=== PATIENT | female | born 1980 | race African-American/Black ===

== ENCOUNTER → 2017-02-12 07:28 | Emergency (ER) | payer OTHER ==
[~2017-02-12 07:28] MED LIST: LORazepam TAB(*) 1 MG PO ONE
[2017-02-12 07:34] VITALS: BP 142/113
--- NOTE | 2017-02-12 10:46 | ED ---
Zachary Torres Nilda, scribed for Jan Lo MD on 02/12/17 at 0832 . Psychiatric Complaint - HPI Summary HPI Summary: This patient is a 36 year old F presenting to [facility] with a chief complaint of constant insomnia for the past month. Patient had a [facility] referral to a specialist in [place] after being diagnosed with anxiety. The specialist was assisting with sleep management with limited resolution. Patient can no longer see this specialist. Symptoms aggravated and alleviated by nothing. Patient reports her mind won't turn off. She currently has no medication to manage her insomnia. - History Of Current Complaint Chief Complaint: EDMentalHealth Time Seen by Provider: 02/12/17 07:55 Hx Obtained From: Patient Onset/Duration: Gradual Onset, Lasting Weeks, Still Present Timing: Constant Severity Currently: Moderate Aggravating Factor(s): Nothing Alleviating Factor(s): Nothing Related History: Positive For: Prior Psychiatric Issues - anxiety PMH/Surg Hx/FS Hx/Imm Hx Sensory History: Denies: Hx Legally Blind Psychiatric History: Reports: Hx Anxiety Infectious Disease History: No Infectious Disease History: Denies: Traveled Outside the [place] in Last 30 Days - Family History Known Family History: Negative: Hypertension, Diabetes Review of Systems Negative: Shortness Of Breath Positive: Anxious, Other - "mind won't turn off," insomnia All Other Systems Reviewed And Are Negative: Yes Physical Exam Triage Information Reviewed: Yes Vital Signs On Initial Exam: Initial Vitals Temp Pulse Resp BP Pulse Ox 98.6 F 104 19 142/113 97 02/12/17 07:28 02/12/17 07:28 02/12/17 07:28 02/12/17 07:28 02/12/17 07:28 Vital Signs Reviewed: Yes Appearance: Positive: Well-Appearing, No Pain Distress Skin: Positive: Warm, Skin Color Reflects Adequate Perfusion, Dry Head/Face: Positive: Normal Head/Face Inspection Eyes: Positive: Normal ENT: Positive: Normal ENT inspection Neck: Positive: Supple, Nontender Respiratory/Lung Sounds: Positive: Clear to Auscultation, Breath Sounds Present Cardiovascular: Positive: RRR Abdomen Description: Positive: Nontender, Soft Bowel Sounds: Positive: Present Musculoskeletal: Positive: Normal Neurological: Positive: Normal Psychiatric: Positive: Normal, Affect/Mood Appropriate Diagnostics - Vital Signs Vital Signs Temp Pulse Resp BP Pulse Ox 02/12/17 07:28 98.6 F 104 19 142/113 97 - Laboratory Lab Statement: Any lab studies that have been ordered have been reviewed, and results considered in the medical decision making process. Course/Dx - Course Course Of Treatment: Ms. Wallis presented with uncontrolled anxiety and insomnia. She has needed increasing doses of temazepam and her local psychiatrist has dropped her. She saw the [facility] here who arranged for follow up and I will give her a short course of seroquel to tide her over. - Differential Dx/Clinical Impression Provider Diagnosis: Anxiety Discharge - Discharge Plan Condition: Stable Disposition: OTHER Discharge Disposition Comment: E Prescriptions: QUEtiapine TAB* [SEROquel TAB*] 100 mg PO BEDTIME #20 tab Patient Education Materials: Anxiety (ED) Referrals: [facility] [Other] - As Soon As Possible (Please contact to schedule an appointment to discuss other medications options to help promote sleep.) [facility] - Ankur PANTOJA [Primary Care Provider] - As Soon As Possible ( Continue with therapy through [facility]) Additional Instructions: RETURN TO THE EMERGENCY DEPARTMENT FOR CHANGING OR WORSENING SYMPTOMS. The documentation as recorded by the Zachary cary Nilda accurately reflects the service I personally performed and the decisions made by me, Jan Lo MD.
== END ==
LOC: ED 07:28
DX: F41.9 Anxiety disorder, unspecified (principal)
CPT/HCPCS: 99283; A9270-GY

== ENCOUNTER 2017-05-07 15:16 | Emergency (ER) | payer OTHER ==
[2017-05-07] MEDS ORDERED: HYDROmorphone INJ* 1 MG/ML CARPUJECT SYRINGE IV ONE (17:00)
[2017-05-07] MEDS ORDERED: Ondansetron INJ* 2 MG/ML VIAL IV ONE (17:00)
[2017-05-07] MEDS ORDERED: NS 0.9% 1000 ML* 1,000 ML IV ONE (17:00)
[2017-05-07 17:15] LABS: Urine Appearance Cloudy; Urine Blood Negative (Negative); Urine Color Amber; Urine Ketones 1+ (Negative); Urine Protein Negative (Negative); Urine Specific Gravity 1.021 (1.010-1.030); Urine Urobilinogen Negative (Negative)
[2017-05-07 17:31] LABS: ABS Basophils 0 10^3/ul (0-0.2); ABS Eosinophils 0 10^3/ul (0-0.6); ABS Lymphocytes 1.3 10^3/ul (1.0-4.8); ABS Monocytes 0.8 10^3/ul (0-0.8); ABS Neutrophils 9.3 10^3/ul (1.5-7.7); ABS Nucleated RBC 0 10^3/ul; Eosinophil % 0.2 % (0-6); Hematocrit 38 % (35-47); Hemoglobin 13.2 g/dl (12.0-16.0); Mean Corpuscular HGB Conc 35 g/dl (31-36); Mean Corpuscular Hemoglobin 30 pg (27-31); Mean Corpuscular Volume 87 fL (80-97); Mean Platelet Volume 7 um3 (7.4-10.4); Nucleated Red Blood Cells % 0; Platelet Count 305 10^3/ul (150-450); Red Blood Count 4.36 10^6/ul (4.0-5.4); Red Cell Distribution Width 12 % (10.5-15); White Blood Count 11.4 10^3/ul (3.5-10.8)
[2017-05-07] MEDS ORDERED: diPHENhydraMINE PO* 50 MG PO ONE ×2 (18:13→19:41)
[2017-05-07 18:18] LABS: EGFR Non-African American 88.5 (>60)
--- NOTE | 2017-05-07 18:24 | RAD ---
Indication: RIGHT lower quadrant severe abdominal pain, cramping, and urge to have bowel movement. Comparison: No relevant prior exams available on the [facility] PACS for comparison. Technique: Transvaginal pelvic ultrasound. RIGHT lower quadrant transabdominal ultrasound. Report: 8.7 x 4.0 x 4.7 cm anteverted uterus with suggestion of arcuate variant morphology. 0.9 x 0.5 x 0.6 cm midline anterior subserosal fibroid and 1.4 x 1.0 x 1.2 cm LEFT fundal subserosal fibroid. 6 mm endometrium. Physiologic small volume of free pelvic fluid. 2.0 x 1.3 x 1.8 cm RIGHT ovary with documented vascular flow is unremarkable. 1.9 x 2.4 x 1.7 cm LEFT ovary with documented vascular flow is unremarkable. No visualized extra ovarian adnexal region lesions evident. Nondiagnostic exam for assessment of the appendix due to nonvisualization of the appendix. Negative for RIGHT lower quadrant free fluid. IMPRESSION: 1. Small subserosal uterine fibroids. Normal thickness endometrium. Unremarkable ovaries and adnexal regions. 2. Nondiagnostic exam of the appendix due to nonvisualization of the appendix. Correlate with clinical assessment and consider CT for further evaluation if deemed appropriate.
--- NOTE | 2017-05-07 18:24 | RAD ---
Indication: RIGHT lower quadrant severe abdominal pain, cramping, and urge to have bowel movement. Comparison: No relevant prior exams available on the [facility] PACS for comparison. Technique: Transvaginal pelvic ultrasound. RIGHT lower quadrant transabdominal ultrasound. Report: 8.7 x 4.0 x 4.7 cm anteverted uterus with suggestion of arcuate variant morphology. 0.9 x 0.5 x 0.6 cm midline anterior subserosal fibroid and 1.4 x 1.0 x 1.2 cm LEFT fundal subserosal fibroid. 6 mm endometrium. Physiologic small volume of free pelvic fluid. 2.0 x 1.3 x 1.8 cm RIGHT ovary with documented vascular flow is unremarkable. 1.9 x 2.4 x 1.7 cm LEFT ovary with documented vascular flow is unremarkable. No visualized extra ovarian adnexal region lesions evident. Nondiagnostic exam for assessment of the appendix due to nonvisualization of the appendix. Negative for RIGHT lower quadrant free fluid. IMPRESSION: 1. Small subserosal uterine fibroids. Normal thickness endometrium. Unremarkable ovaries and adnexal regions. 2. Nondiagnostic exam of the appendix due to nonvisualization of the appendix. Correlate with clinical assessment and consider CT for further evaluation if deemed appropriate.
[2017-05-07] MEDS ORDERED: HYDROcodone/ACETAMIN 5-325 MG* 1 TAB PO ONE (18:36)
[2017-05-07 19:44] VITALS: BP 122/68
--- NOTE | 2017-05-08 14:51 | ED ---
Ky Torres Tecjoon, scribed for Jan Lo MD on 05/07/17 at 1653 . Abdominal Pain/Female - HPI Summary HPI Summary: This patient is a 36 year old female presenting to [facility] with a chief complaint of lower abd and pelvic pain since yesterday. Patient states that she started fasting the last few days as a new years celebration, but stopped after the pain started. The pain is described as sharp, goes in waves. The pain is rated 10/10 in severity. Symptoms aggravated by nothing. Symptoms alleviated by nothing. Patient additionally reports constipation, nausea, tenderness in upper abd. Patient denies diarrhea, loss of appetite. Patient states she has been unable to urinate properly, only a small amount comes out. - History of Current Complaint Chief Complaint: EDAbdPain Stated Complaint: ABD PAIN Time Seen by Provider: 05/07/17 16:10 Hx Obtained From: Patient Onset/Duration: Gradual Onset, Lasting Days - 1, Still Present Timing: Constant Severity Currently: Severe Pain Intensity: 10 Pain Scale Used: 0-10 Numeric Location: Discrete At: RLQ, Suprapubic Character: Sharp, Other: - "goes in waves" Aggravating Factor(s): Nothing Alleviating Factor(s): Nothing Associated Signs and Symptoms: Positive: Other: - constipation, nausea, tenderness in upper abd Allergies/Adverse Reactions: Allergies Allergy/AdvReac Type Severity Reaction Status Date / Time No Known Allergies Allergy Verified 05/07/17 17:42 PMH/Surg Hx/FS Hx/Imm Hx Previously Healthy: Yes Sensory History: Denies: Hx Legally Blind Opthamlomology History: Denies: Hx Legally Blind Psychiatric History: Reports: Hx Anxiety Denies: Hx Eating Disorder, Hx of Violent Episodes Against Others Infectious Disease History: No Infectious Disease History: Denies: Traveled Outside the [place] in Last 30 Days - Family History Known Family History: Negative: Hypertension, Diabetes - Social History Occupation: Employed Full-time Alcohol Use: None Hx Substance Use: No Substance Use Type: Reports: None Hx Tobacco Use: No Smoking Status (MU): Never Smoked Tobacco Review of Systems Negative: Fever Positive: Abdominal Pain, Nausea, Other - constipation. Negative: Diarrhea Genitourinary: Other - pelvic pain All Other Systems Reviewed And Are Negative: Yes Physical Exam - Summary Physical Exam Summary: Appearance: The patient is well-nourished in no acute distress and in no acute pain. Skin: The skin is warm and dry and skin color reflects adequate perfusion. HEENT: The head is normocephalic and atraumatic. The pupils are equal and reactive. The conjunctivae are clear and without drainage. Nares are patent and without drainage. Mouth reveals moist mucous membranes and the throat is without erythema and exudate. The external ears are intact. The ear canals are patent and without drainage. The tympanic membranes are intact. Neck: the neck is supple with full range of motion and non-tender. There are no carotid bruits. There is no neck vein distension. Respiratory: Chest is non-tender. Lungs are clear to auscultation and breath sounds are symmetrical and equal. Cardiovascular: Heart is regular rate and rhythm. There is no murmur or rub auscultated. There is no peripheral edema and pulses are symmetrical and equal. Abdomen: Moderate tenderness at MacBurney's point. Mild diffuse tenderness Musculoskeletal: There is no back tenderness noted. Extremities are non-tender with full range of motion. There is good capillary refill. There is no peripheral edema or calf tenderness elicited. Neurological: Patient is alert and oriented to person, place and time. The patient has symmetrical motor strength in all four extremities. Cranial nerves are grossly intact. Deep tendon reflexes are symmetrical and equal in all four extremities. Psychiatric: The patient has an appropriate affect and does not exhibit any anxiety or depression. Triage Information Reviewed: Yes Vital Signs On Initial Exam: Initial Vitals Temp Pulse Resp BP Pulse Ox 97.6 F 98 19 113/79 98 05/07/17 15:17 05/07/17 15:17 05/07/17 15:17 05/07/17 15:17 05/07/17 15:17 Vital Signs Reviewed: Yes Diagnostics - Vital Signs Vital Signs Temp Pulse Resp BP Pulse Ox 05/07/17 15:17 97.6 F 98 19 113/79 98 - Laboratory Lab Results: Lab Results 05/07/17 05/07/17 05/07/17 Range/Units 16:53 17:10 17:10 WBC 11.4 H (3.5-10.8) 10^3/ul RBC 4.36 (4.0-5.4) 10^6/ul Hgb 13.2 (12.0-16.0) g/dl Hct 38 (35-47) % MCV 87 (80-97) fL MCH 30 (27-31) pg MCHC 35 (31-36) g/dl RDW 12 (10.5-15) % Plt Count 305 (150-450) 10^3/ul MPV 7 L (7.4-10.4) um3 Neut % (Auto) 81.5 (38-83) % Lymph % (Auto) 11.0 L (25-47) % [place] % (Auto) 7.1 (1-9) % Eos % (Auto) 0.2 (0-6) % Baso % (Auto) 0.2 (0-2) % Absolute Neuts (auto) 9.3 H (1.5-7.7) 10^3/ul Absolute Lymphs (auto) 1.3 (1.0-4.8) 10^3/ul Absolute Monos (auto) 0.8 (0-0.8) 10^3/ul Absolute Eos (auto) 0 (0-0.6) 10^3/ul Absolute Basos (auto) 0 (0-0.2) 10^3/ul Absolute Nucleated RBC 0 10^3/ul CBC Comment Cancelled Nucleated RBC % 0 Sodium Cancelled Potassium Cancelled Chloride Cancelled Carbon Dioxide Cancelled Anion Gap Cancelled BUN Cancelled Creatinine Cancelled Est GFR ( Amer) Cancelled Est GFR (Non-Af Amer) Cancelled BUN/Creatinine Ratio Cancelled Glucose Cancelled Lactic Acid (0.5-2.0) mmol/L Calcium Cancelled Total Bilirubin Cancelled AST Cancelled ALT Cancelled Alkaline Phosphatase Cancelled C-Reactive Protein Cancelled Total Protein Cancelled Albumin Cancelled Globulin Cancelled Albumin/Globulin Ratio Cancelled Lipase Cancelled Beta HCG, Quant Cancelled Urine Color K[place] Urine Appearance Cloudy Urine pH 8.0 (5-9) Ur Specific [place] 1.021 (1.010-1.030) Urine Protein Negative (Negative) Urine Ketones 1+ H (Negative) Urine Blood Negative (Negative) Urine Nitrate Negative (Negative) Urine Bilirubin Negative (Negative) Urine Urobilinogen Negative (Negative) Ur Leukocyte Esterase Negative (Negative) Urine Glucose Negative (Negative) 05/07/17 05/07/17 Range/Units 17:10 17:10 WBC (3.5-10.8) 10^3/ul RBC (4.0-5.4) 10^6/ul Hgb (12.0-16.0) g/dl Hct (35-47) % MCV (80-97) fL MCH (27-31) pg MCHC (31-36) g/dl RDW (10.5-15) % Plt Count (150-450) 10^3/ul MPV (7.4-10.4) um3 Neut % (Auto) (38-83) % Lymph % (Auto) (25-47) % [place] % (Auto) (1-9) % Eos % (Auto) (0-6) % Baso % (Auto) (0-2) % Absolute Neuts (auto) (1.5-7.7) 10^3/ul Absolute Lymphs (auto) (1.0-4.8) 10^3/ul Absolute Monos (auto) (0-0.8) 10^3/ul Absolute Eos (auto) (0-0.6) 10^3/ul Absolute Basos (auto) (0-0.2) 10^3/ul Absolute Nucleated RBC 10^3/ul CBC Comment Nucleated RBC % Sodium 130 L Potassium 3.5 Chloride 100 L Carbon Dioxide 22 Anion Gap 8 BUN 8 Creatinine 0.75 Est GFR ( Amer) 113.8 Est GFR (Non-Af Amer) 88.5 BUN/Creatinine Ratio 10.7 Glucose 101 H Lactic Acid 0.9 (0.5-2.0) mmol/L Calcium 8.6 Total Bilirubin 0.30 AST 18 ALT 14 Alkaline Phosphatase 53 C-Reactive Protein 8.00 H Total Protein 7.2 Albumin 3.9 Globulin 3.3 Albumin/Globulin Ratio 1.2 Lipase 51 Beta HCG, Quant < 0.60 Urine Color Urine Appearance Urine pH (5-9) Ur Specific [place] (1.010-1.030) Urine Protein (Negative) Urine Ketones (Negative) Urine Blood (Negative) Urine Nitrate (Negative) Urine Bilirubin (Negative) Urine Urobilinogen (Negative) Ur Leukocyte Esterase (Negative) Urine Glucose (Negative) Result Diagrams: 05/07/17 17:10 05/07/17 17:10 Lab Statement: Any lab studies that have been ordered have been reviewed, and results considered in the medical decision making process. - Additional Comments Diagnostic Additional Comments: US Appendix reveals, per radiologist, IMPRESSION: 1. Small subserosal uterine fibroids. Normal thickness endometrium. Unremarkable ovaries and adnexal regions. 2. Nondiagnostic exam of the appendix due to nonvisualization of the appendix. Correlate with clinical assessment and consider CT for further evaluation if deemed appropriate. ED physician has reviewed this radiology report. US Transvaginal reveals, per radiologist, IMPRESSION: 1. Small subserosal uterine fibroids. Normal thickness endometrium. Unremarkable ovaries and adnexal regions. 2. Nondiagnostic exam of the appendix due to nonvisualization of the appendix. Correlate with clinical assessment and consider CT for further evaluation if deemed appropriate. ED physician has reviewed this radiology report. Abdominal Pain Fem Course/Dx - Course Course Of Treatment: Ms. Wallis presented with low abdominal pain of about one day duration. She was mildly tender at McBurney's point. Her Labs were WNL and U/S's of her appendix and pelvis were nondiagnostic. We discussed further testing at that point but she no longer had any pain or tenderness and she choose to wait and see what happened. - Diagnoses Provider Diagnoses: Abdominal pain Discharge - Discharge Plan Condition: Stable Disposition: HOME Patient Education Materials: Abdominal Pain (ED) Referrals: [facility] - Ankur PANTOJA [Primary Care Provider] - 3 Days Additional Instructions: Patient will be discharged with abdominal pain and is advised to follow up with PCP in 3 days. The patient is agreeable with this plan. The documentation as recorded by the Ky cary Tecjoon accurately reflects the service I personally performed and the decisions made by , Jan Lo MD.
== END 2017-05-07 19:56 | disposition home or self-care (01) ==
LOC: ED 15:16
DX: R10.30 Lower abdominal pain, unspecified (principal); D25.2 Subserosal leiomyoma of uterus
CPT/HCPCS: 36415; 76705; 76830; 80053; 81003; 83605; 83690; 84702; 85025; 86140; 87040; 96361; 96374; 96375; 99283; A9270-GY; J1170; J2405

== ENCOUNTER 2017-07-08 12:01 | Emergency (ER) | payer OTHER ==
[2017-07-08 13:00] LABS: Urine Appearance Cloudy; Urine Blood Negative (Negative); Urine Color Amber; Urine Ketones Negative (Negative); Urine Protein Negative (Negative); Urine Specific Gravity 1.013 (1.010-1.030); Urine Urobilinogen Negative (Negative)
[2017-07-08 13:13] LABS: ABS Basophils 0 10^3/ul (0-0.2); ABS Eosinophils 0.4 10^3/ul (0-0.6); ABS Lymphocytes 1.8 10^3/ul (1.0-4.8); ABS Monocytes 0.6 10^3/ul (0-0.8); ABS Neutrophils 3.5 10^3/ul (1.5-7.7); ABS Nucleated RBC 0 10^3/ul; EGFR Non-African American 93.7 (>60); Hematocrit 37 % (35-47); Hemoglobin 12.8 g/dl (12.0-16.0); Lymphocyte % 28.9 % (25-47); Mean Corpuscular HGB Conc 35 g/dl (31-36); Mean Corpuscular Hemoglobin 30 pg (27-31); Mean Corpuscular Volume 88 fL (80-97); Mean Platelet Volume 7 um3 (7.4-10.4); Nucleated Red Blood Cells % 0.1; Platelet Count 314 10^3/ul (150-450); Red Blood Count 4.22 10^6/ul (4.0-5.4); Red Cell Distribution Width 12 % (10.5-15); White Blood Count 6.3 10^3/ul (3.5-10.8)
[2017-07-08] MEDS ORDERED: Ketorolac INJ* 30 MG/ML 1 ML VIAL IV PUSH ONE (14:08)
[2017-07-08] MEDS ORDERED: Ondansetron INJ* 2 MG/ML VIAL IV ONE (14:08)
[2017-07-08] MEDS ORDERED: Ondansetron INJ* 2 MG/ML VIAL ONE (14:09)
[2017-07-08] MEDS ORDERED: Ketorolac INJ* 30 MG/ML 1 ML VIAL ONE (14:09)
[2017-07-08] MEDS ORDERED: NS 0.9% 1000 ML* 1,000 ML BOLUS SCH (14:30)
[2017-07-08] MEDS ORDERED: Morphine INJ* 10 MG/ML 1 ML CARPUJECT IV ONE (15:20)
[2017-07-08] MEDS ORDERED: Iohexol 300* (CONTRAST) 10 ML SDV IV ONE (16:23)
--- NOTE | 2017-07-08 17:18 | RAD ---
INDICATION: Abdominal pain COMPARISON: None TECHNIQUE: Axial source images were obtained from the hemidiaphragms to the symphysis pubis following administration of oral and intravenous contrast. 100 mL Omnipaque 300 was utilized. Coronal and sagittal reconstructed images were acquired. Lung bases: The lung bases are clear. Liver: The liver is normal in size. There are benign-appearing hepatic masses which appear to demonstrate centripetal filling as there is nodular peripheral enhancement on the portal venous phase images and there is essentially complete opacification on the delayed images. A hepatic lobe lesion measures 3.2 cm and a mid to inferior right hepatic lobe lesion measures 2.7. There is no ductal dilatation. Gallbladder: There are no calcified gallstones. There is no evidence of wall thickening or pericholecystic fluid. Spleen: The spleen is normal in size. There are no masses. Pancreas: There is no focal pancreatic mass or ductal dilatation. Adrenal glands: There is no evidence of adrenal mass. Kidneys: The kidneys are normal in size and position. There are prompt nephrograms and there is prompt excretion bilaterally. There are no renal parenchymal masses. There is no evidence of nephrolithiasis. Adenopathy: There is no evidence of adenopathy by size criteria. Fluid collections: There trace free fluid in the cul-de-sac Vessels:There are no significant atherosclerotic changes involving the aorta. There is no focal aneurysm. The iliac vessels are normal in caliber. The IVC appears normal. GI tract: There are no acute CT bowel findings. There is no obstruction. The stomach and small bowel appear normal. The lower GI tract is normal. The cecum, ileocecal valve, and terminal ileum appear normal. The appendix is visualized and appear normal. Pelvic organs: The uterus and adnexa appear normal Bladder: There are no bladder masses. Abdominal and pelvic soft tissues: The extraperitoneal abdominal and pelvic soft tissues appear normal.. Osseous structures: There are no acute osseous findings. Other: None IMPRESSION: No acute CT findings. Normal appendix. CT findings most consistent with incidental hepatic hemangiomas.
[2017-07-08 18:49] VITALS: BP 129/84
--- NOTE | 2017-07-08 20:50 | ED ---
Grabiel Torres Natalie, scribed for Andra Rowley MD on 07/08/17 at 1342 . Abdominal Pain/Female - HPI Summary HPI Summary: The patient is a 37 y/o F presenting to the ED c/o suprapubic and bilateral LLQ abd pain worsening today. She had the same intense abd pain starting 05/07/17 which she came to the ED for. She states that the pain has been manageable since then until today. She rates the pain 6/10. She describes the pain as a pressure, which makes her feel like she has to urgently keep running to bathroom every ten minutes. Her last BM was an hour ago. The stool was a normal brown color with small solids. She is nauseous, but has not vomited. She has used digestion acupuncture points when she cant go to the bathroom. Her LNMP was 07/05/17. She has been off the control pill since May, and was supposed to start taking it again today but did not because of the abd pain. - History of Current Complaint Chief Complaint: EDAbdPain Stated Complaint: ABD PAIN, NAUSEA Time Seen by Provider: 07/08/17 12:37 Hx Obtained From: Patient Onset/Duration: Sudden Onset - started this morning, Still Present Timing: Constant Severity Initially: Moderate Severity Currently: Moderate Pain Intensity: 6 Pain Scale Used: 0-10 Numeric Location: Other - suprapubic and bilateral lower quadrants Radiates: No Aggravating Factor(s): Nothing Alleviating Factor(s): Nothing Associated Signs and Symptoms: Positive: Nausea. Negative: Constipation, Vomiting, Diarrhea Allergies/Adverse Reactions: Allergies Allergy/AdvReac Type Severity Reaction Status Date / Time No Known Allergies Allergy Verified 05/07/17 17:42 PMH/Surg Hx/FS Hx/Imm Hx Previously Healthy: No Opthamlomology History: Denies: Hx Legally Blind EENT History: Denies: Hx Deafness Psychiatric History: Reports: Hx Anxiety Denies: Hx Eating Disorder, Hx of Violent Episodes Against Others - Immunization History Date of Tetanus Vaccine: UTD Date of Influenza Vaccine: 02/2017 Infectious Disease History: No Infectious Disease History: Denies: Traveled Outside the [place] in Last 30 Days - Family History Known Family History: Negative: Hypertension, Diabetes - Social History Alcohol Use: Occasionally Hx Substance Use: No Substance Use Type: Reports: None Hx Tobacco Use: No Smoking Status (MU): Never Smoked Tobacco Review of Systems Negative: Fever Positive: Abdominal Pain, Nausea, Other - NEGATIVE: constipation. Negative: Vomiting, Diarrhea All Other Systems Reviewed And Are Negative: Yes Physical Exam - Summary Physical Exam Summary: Appearance: Female who is well-appearing, moderate pain distress, Well- nourished. Acupuncture pressure points in ears. Skin: Warm, color reflects adequate perfusion Head: Normal Head/Face inspection Eyes: Conjunctiva clear ENT: Normal inspection Neck: Supple, no nodes, no JVD. Respiratory: Lungs clear, Normal breath sounds, no respiratory distress Cardio: RRR, No murmur, pulses normal, brisk capillary refill Abdomen: soft, tender in suprapubic region and bilateral lower quadrant Bowel sounds: present Musculoskeletal: Strength Intact/ ROM intact. No calf tenderness. No edema. Neuro: Alert, muscle tone normal, facial symmetry, speech normal, sensory/motor intact Psychological: Normal Triage Information Reviewed: Yes Vital Signs On Initial Exam: Initial Vitals Temp Pulse Resp BP Pulse Ox 98.2 F 100 19 140/86 97 07/08/17 12:06 07/08/17 12:06 07/08/17 12:06 07/08/17 12:06 07/08/17 12:06 Vital Signs Reviewed: Yes Diagnostics - Vital Signs Vital Signs Temp Pulse Resp BP Pulse Ox 07/08/17 13:00 78 97 07/08/17 12:35 81 98 07/08/17 12:06 98.2 F 100 19 140/86 97 - Laboratory Lab Results: Lab Results 07/08/17 07/08/17 07/08/17 Range/Units 12:45 12:45 12:45 WBC 6.3 (3.5-10.8) 10^3/ul RBC 4.22 (4.0-5.4) 10^6/ul Hgb 12.8 (12.0-16.0) g/dl Hct 37 (35-47) % MCV 88 (80-97) fL MCH 30 (27-31) pg MCHC 35 (31-36) g/dl RDW 12 (10.5-15) % Plt Count 314 (150-450) 10^3/ul MPV 7 L (7.4-10.4) um3 Neut % (Auto) 55.3 (38-83) % Lymph % (Auto) 28.9 (25-47) % [place] % (Auto) 9.5 H (0-7) % Eos % (Auto) 6.0 (0-6) % Baso % (Auto) 0.3 (0-2) % Absolute Neuts (auto) 3.5 (1.5-7.7) 10^3/ul Absolute Lymphs (auto) 1.8 (1.0-4.8) 10^3/ul Absolute Monos (auto) 0.6 (0-0.8) 10^3/ul Absolute Eos (auto) 0.4 (0-0.6) 10^3/ul Absolute Basos (auto) 0 (0-0.2) 10^3/ul Absolute Nucleated RBC 0 10^3/ul Nucleated RBC % 0.1 Sodium 136 (133-145) mmol/L Potassium 3.9 (3.5-5.0) mmol/L Chloride 104 (101-111) mmol/L Carbon Dioxide 27 (22-32) mmol/L Anion Gap 5 (2-11) mmol/L BUN 12 (6-24) mg/dL Creatinine 0.71 (0.51-0.95) mg/dL Est GFR ( Amer) 120.5 (>60) Est GFR (Non-Af Amer) 93.7 (>60) BUN/Creatinine Ratio 16.9 (8-20) Glucose 109 H (70-100) mg/dL Lactic Acid 1.0 (0.5-2.0) mmol/L Calcium 9.3 (8.6-10.3) mg/dL Total Bilirubin 0.40 (0.2-1.0) mg/dL AST 17 (13-39) U/L ALT 16 (7-52) U/L Alkaline Phosphatase 67 (34-104) U/L C-Reactive Protein 1.09 (< 5.00) mg/L Total Protein 7.4 (6.4-8.9) g/dL Albumin 4.2 (3.2-5.2) g/dL Globulin 3.2 (2-4) g/dL Albumin/Globulin Ratio 1.3 (1-3) Lipase 49 (11.0-82.0) U/L Beta HCG, Quant Pending Urine Color Urine Appearance Urine pH (5-9) Ur Specific [place] (1.010-1.030) Urine Protein (Negative) Urine Ketones (Negative) Urine Blood (Negative) Urine Nitrate (Negative) Urine Bilirubin (Negative) Urine Urobilinogen (Negative) Ur Leukocyte Esterase (Negative) Urine Glucose (Negative) Urine Ascorbic Acid (Negative) 07/08/17 Range/Units 12:45 WBC (3.5-10.8) 10^3/ul RBC (4.0-5.4) 10^6/ul Hgb (12.0-16.0) g/dl Hct (35-47) % MCV (80-97) fL MCH (27-31) pg MCHC (31-36) g/dl RDW (10.5-15) % Plt Count (150-450) 10^3/ul MPV (7.4-10.4) um3 Neut % (Auto) (38-83) % Lymph % (Auto) (25-47) % [place] % (Auto) (0-7) % Eos % (Auto) (0-6) % Baso % (Auto) (0-2) % Absolute Neuts (auto) (1.5-7.7) 10^3/ul Absolute Lymphs (auto) (1.0-4.8) 10^3/ul Absolute Monos (auto) (0-0.8) 10^3/ul Absolute Eos (auto) (0-0.6) 10^3/ul Absolute Basos (auto) (0-0.2) 10^3/ul Absolute Nucleated RBC 10^3/ul Nucleated RBC % Sodium (133-145) mmol/L Potassium (3.5-5.0) mmol/L Chloride (101-111) mmol/L Carbon Dioxide (22-32) mmol/L Anion Gap (2-11) mmol/L BUN (6-24) mg/dL Creatinine (0.51-0.95) mg/dL Est GFR ( Amer) (>60) Est GFR (Non-Af Amer) (>60) BUN/Creatinine Ratio (8-20) Glucose (70-100) mg/dL Lactic Acid (0.5-2.0) mmol/L Calcium (8.6-10.3) mg/dL Total Bilirubin (0.2-1.0) mg/dL AST (13-39) U/L ALT (7-52) U/L Alkaline Phosphatase (34-104) U/L C-Reactive Protein (< 5.00) mg/L Total Protein (6.4-8.9) g/dL Albumin (3.2-5.2) g/dL Globulin (2-4) g/dL Albumin/Globulin Ratio (1-3) Lipase (11.0-82.0) U/L Beta HCG, Quant Urine Color Kellee Urine Appearance Cloudy Urine pH 7.0 (5-9) Ur Specific [place] 1.013 (1.010-1.030) Urine Protein Negative (Negative) Urine Ketones Negative (Negative) Urine Blood Negative (Negative) Urine Nitrate Negative (Negative) Urine Bilirubin Negative (Negative) Urine Urobilinogen Negative (Negative) Ur Leukocyte Esterase Negative (Negative) Urine Glucose Negative (Negative) Urine Ascorbic Acid * A (Negative) Result Diagrams: 07/08/17 12:45 07/08/17 12:45 Lab Statement: Any lab studies that have been ordered have been reviewed, and results considered in the medical decision making process. - CT Abd/Pel CT Interpretation: No Acute Changes - No acute CT findings. Normal appendix. CT findings most consistent with incidental hepatic hemangiomas. ED physician has reviewed this report. CT Interpretation Completed By: Radiologist Re-Evaluation - Re-Evaluation First Eval Re-Evaluation Time: 14:15 Change: Unchanged Comment: The patient is still in pain. She and I had shared decision making of furthering care with CT Abd/Pel to try to find a diagnosis. The patient understands that this is radiation. Second Eval Re-Evaluation Time: 17:00 Change: Improved Comment: The patient's is going for her CT Abd/Pel. She is not in pain this time. Third Eval Re-Evaluation Time: 18:15 Change: Improved Comment: The patient is not in pain. She is agreeable to be discharged home. Abdominal Pain Fem Course/Dx - Course Course Of Treatment: Pt's medications reviewed during this visit. In the ER, the patient was given NS IV, Omnipaque, Toradol 2x, Zofran 2x, and Morphine. CT Abd/Pel showed no significantly remarkable findings. The patient will be discharged home with prescription for hyoscyamine. She is advised to follow up with [facility]. Patient is agreeable with this plan. - Diagnoses Provider Diagnoses: Acute abdominal pain Discharge - Discharge Plan Condition: Stable Disposition: HOME Prescriptions: Hyoscyamine TAB* [Anaspaz 0.125 MG TAB*] 0.125 mg PO Q6H PRN #12 tab PRN Reason: cramping pain Patient Education Materials: Acute Abdominal Pain (ED) Forms: *School Release Referrals: [facility] - Ankur PANTOJA [Primary Care Provider] - Additional Instructions: We did not find any serious cause for your abdominal pain today. We have prescribed hyoscyamine that you may try for abdominal cramping pain. You may also try ibuprofen and acetaminophen as directed. RETURN TO THE ER FOR ANY NEW OR WORSENING SYMPTOMS The documentation as recorded by the Grabiel cary Natalie accurately reflects the service I personally performed and the decisions made by , Andra Rowley MD.
== END 2017-07-08 18:40 | disposition home or self-care (01) ==
LOC: ED 12:01
DX: R10.32 Left lower quadrant pain (principal); R11.0 Nausea
CPT/HCPCS: 36415; 74177; 80053; 81003; 83605; 83690; 84702; 85025; 86140; 99282; J1885; J2270; J2405; Q9967

== ENCOUNTER 2018-06-13 23:49 | Emergency (ER) | payer OTHER ==
[2018-06-14] MEDS ORDERED: ALPRAZolam TAB* 0.5 MG PO ONE (02:38)
--- NOTE | 2018-06-14 02:48 | ED ---
Complex/Multi-Sys Presentation - HPI Summary HPI Summary: Pt is a 38 y/o F presenting to the ED because she feels "sped up." She has had insomnia for a while and has taken different medications for it, including trazodone (50mg tabs, 2-3 tabs at a time) and ambien, but feels they have not been helping recently. She also takes lamictal, and took nurofin for her cramps tonight. Pt denies hx of depression. - History Of Current Complaint Chief Complaint: EDGeneral Hx Obtained From: Patient Onset/Duration: Gradual Onset, Lasting Days, Still Present Timing: Constant Severity Currently: None - Allergies/Home Medications Allergies/Adverse Reactions: Allergies Allergy/AdvReac Type Severity Reaction Status Date / Time No Known Allergies Allergy Verified 05/07/17 17:42 Home Medications: Home Medications LORazepam [Lorazepam] 1 mg PO TID PRN 06/14/18 [History Confirmed 06/14/18] Zolpidem Tartrate 20 mg PO DAILY 06/14/18 [History Confirmed 06/14/18] lamoTRIgine [Lamotrigine] 300 mg PO DAILY 06/14/18 [History Confirmed 06/14/18] PMH/Surg Hx/FS Hx/Imm Hx Previously Healthy: No Endocrine/Hematology History: Denies: Hx Diabetes Cardiovascular History: Denies: Hx Hypertension Sensory History: Denies: Hx Legally Blind, Hx Deafness Opthamlomology History: Denies: Hx Legally Blind Psychiatric History: Reports: Hx Anxiety, Other Psychiatric Issues/Disorders - insomnia Denies: Hx Eating Disorder, Hx of Violent Episodes Against Others - Surgical History Surgery Procedure, Year, and Place: none - Immunization History Date of Tetanus Vaccine: UTD Date of Influenza Vaccine: 02/2017 Infectious Disease History: No Infectious Disease History: Reports: Traveled Outside the [place] in Last 30 Days - Family History Known Family History: Negative: Hypertension, Diabetes - Social History Alcohol Use: None Hx Substance Use: No Substance Use Type: Reports: None Hx Tobacco Use: No Smoking Status (MU): Never Smoked Tobacco Review of Systems Negative: Fever Negative: Abdominal Pain All Other Systems Reviewed And Are Negative: Yes Physical Exam - Summary Physical Exam Summary: VITAL SIGNS: Reviewed. GENERAL: Patient is a well-developed and nourished female who is lying comfortable in the stretcher. Patient is not in any acute respiratory distress. HEAD AND FACE: No signs of trauma. No ecchymosis, hematomas or skull depressions. No sinus tenderness. EYES: PERRLA, EOMI x 2, No injected conjunctiva, no nystagmus. EARS: Hearing grossly intact. Ear canals and tympanic membranes are within normal limits. MOUTH: Oropharynx within normal limits. NECK: Supple, trachea is midline, no adenopathy, no JVD, no carotid bruit, no c- spine tenderness, neck with full ROM. CHEST: Symmetric, no tenderness at palpation LUNGS: Clear to auscultation bilaterally. No wheezing or crackles. CVS: Regular rate and rhythm, S1 and S2 present, no murmurs or gallops appreciated. ABDOMEN: Soft, non-tender. No signs of distention. No rebound no guarding, and no masses palpated. Bowel sounds are normal. EXTREMITIES: FROM in all major joints, no edema, no cyanosis or clubbing. NEURO: Alert and oriented x 3. No acute neurological deficits. Speech is normal and follows commands. SKIN: Dry and warm Triage Information Reviewed: Yes Vital Signs On Initial Exam: Initial Vitals Temp Pulse Resp BP Pulse Ox 97.9 F 99 16 144/100 99 06/13/18 23:52 06/13/18 23:52 06/13/18 23:52 06/13/18 23:52 06/13/18 23:52 Vital Signs Reviewed: Yes Diagnostics - Vital Signs Vital Signs Temp Pulse Resp BP Pulse Ox 06/13/18 23:52 97.9 F 99 16 144/100 99 - Laboratory Lab Statement: Any lab studies that have been ordered have been reviewed, and results considered in the medical decision making process. Re-Evaluation - Re-Evaluation 1ST RE-EVAL Re-Evaluation Time: 04:48 Change: Improved Comment: Pt is asleep. 2nd re-eval Re-Evaluation Time: 05:03 Change: Improved Comment: Pt has woken up and will be discharged home with a dx of anxiety. Complex Multi-Symp Course/Dx Course Of Treatment: Pt is a 38 y/o F presenting to the ED because she feels "sped up." She has had insomnia for a while and has taken different medications for it, including trazodone (50mg tabs, 2-3 tabs at a time) and ambien, but feels they have not been helping recently. Pt will be discharged home with a dx of anxiety. - Diagnoses Provider Diagnoses: Anxiety Discharge - Sign-Out/Discharge Documenting (check all that apply): Patient Departure Patient Received Moderate/Deep Sedation with Procedure: No - Discharge Plan Condition: Stable Disposition: HOME Referrals: No Primary Care Phys,NOPCP [Primary Care Provider] - - Attestation Statements Document Initiated by Scribe: Yes Documenting Scribe: Christina Rogers Provider For Whom Scribe is Documenting (Include Credential): Pat Taylor MD. Scribe Attestation: Christina Torres, scribed for Pat Taylor MD. on 06/14/18 at 0503. Status of Scribe Document: Ready
[2018-06-14 05:18] VITALS: BP 106/62
== END 2018-06-14 05:10 | disposition home or self-care (01) ==
LOC: ED 23:49
DX: F41.9 Anxiety disorder, unspecified (principal); G47.00 Insomnia, unspecified
CPT/HCPCS: 99282; A9270-GY

== ENCOUNTER 2018-06-14 22:19 | Emergency (ER) | payer OTHER ==
[2018-06-15 00:03] LABS: ABS Basophils 0 10^3/ul (0-0.2); ABS Eosinophils 0 10^3/ul (0-0.6); ABS Lymphocytes 1.1 10^3/ul (1.0-4.8); ABS Neutrophils 10.8 10^3/ul (1.5-7.7); ABS Nucleated RBC 0 10^3/ul; Eosinophil % 0.1 %; Hematocrit 35 % (35-47); Hemoglobin 11.8 g/dl (12.0-16.0); Lymphocyte % 8.5 %; Mean Corpuscular HGB Conc 34 g/dl (31-36); Mean Corpuscular Hemoglobin 28 pg (27-31); Mean Corpuscular Volume 83 fL (80-97); Mean Platelet Volume 6.6 fL (7.4-10.4); Nucleated Red Blood Cells % 0; Platelet Count 376 10^3/ul (150-450); Red Blood Count 4.24 10^6/ul (4.00-5.40); Red Cell Distribution Width 14 % (10.5-15)
--- NOTE | 2018-06-15 00:20 | ED ---
Psychiatric Complaint - HPI Summary HPI Summary: This patient is a 38 year old female presenting to [facility] with a chief complaint of MHE. Patient states that she has not been able to get sleep and feels like she is a danger to herself. Patient states that she has very bad OCD. The pain is rated 0/10 in severity. Symptoms aggravated by nothing. Symptoms alleviated by nothing. Patent states that she has a hx of depression. - History Of Current Complaint Chief Complaint: EDMentalHealth Time Seen by Provider: 06/14/18 23:33 Hx Obtained From: Patient Hx Last Menstrual Period: just finished, on OCPs, due to start new pack of pills today, 07/08/17 Onset/Duration: Still Present Timing: Constant Severity Currently: Mild Character: Anxious Aggravating Factor(s): Nothing Alleviating Factor(s): Nothing Has Suicidal: Denies: Thoughts - Allergies/Home Medications Allergies/Adverse Reactions: Allergies Allergy/AdvReac Type Severity Reaction Status Date / Time No Known Allergies Allergy Verified 06/17/18 20:20 PMH/Surg Hx/FS Hx/Imm Hx Previously Healthy: Yes Endocrine/Hematology History: Denies: Hx Diabetes Cardiovascular History: Denies: Hx Hypertension Sensory History: Denies: Hx Legally Blind, Hx Deafness Opthamlomology History: Denies: Hx Legally Blind Psychiatric History: Reports: Hx Anxiety, Hx Depression, Other Psychiatric Issues/Disorders - insomnia Denies: Hx Eating Disorder, Hx of Violent Episodes Against Others - Surgical History Surgery Procedure, Year, and Place: none - Immunization History Date of Tetanus Vaccine: UTD Date of Influenza Vaccine: 02/2017 Infectious Disease History: No Infectious Disease History: Denies: Traveled Outside the [place] in Last 30 Days - Family History Known Family History: Negative: Hypertension, Diabetes - Social History Occupation: Student Alcohol Use: None Hx Substance Use: No Substance Use Type: Reports: None Hx Tobacco Use: No Smoking Status (MU): Never Smoked Tobacco Review of Systems Negative: Fever Positive: Anxious, Depressed All Other Systems Reviewed And Are Negative: Yes Physical Exam - Summary Physical Exam Summary: VITAL SIGNS: Reviewed. GENERAL: Patient is a well-developed and nourished female who is lying comfortable in the stretcher. Patient is not in any acute respiratory distress. HEAD AND FACE: No signs of trauma. No ecchymosis, hematomas or skull depressions. No sinus tenderness. EYES: PERRLA, EOMI x 2, No injected conjunctiva, no nystagmus. EARS: Hearing grossly intact. Ear canals and tympanic membranes are within normal limits. MOUTH: Oropharynx within normal limits. NECK: Supple, trachea is midline, no adenopathy, no JVD, no carotid bruit, no c- spine tenderness, neck with full ROM. CHEST: Symmetric, no tenderness at palpation LUNGS: Clear to auscultation bilaterally. No wheezing or crackles. CVS: Regular rate and rhythm, S1 and S2 present, no murmurs or gallops appreciated. ABDOMEN: Soft, non-tender. No signs of distention. No rebound no guarding, and no masses palpated. Bowel sounds are normal. EXTREMITIES: FROM in all major joints, no edema, no cyanosis or clubbing. NEURO: Alert and oriented x 3. No acute neurological deficits. Speech is normal and follows commands. PSYCH: Patient is anxious and seems to be worried about harming herself. SKIN: Dry and warm Triage Information Reviewed: Yes Vital Signs On Initial Exam: Initial Vitals Temp Pulse Resp BP Pulse Ox 98.5 F 135 20 148/100 100 06/14/18 22:26 06/14/18 22:26 06/14/18 22:26 06/14/18 22:26 06/14/18 22:26 Vital Signs Reviewed: Yes Diagnostics - Vital Signs Vital Signs Temp Pulse Resp BP Pulse Ox 06/14/18 22:26 98.5 F 135 20 148/100 100 - Laboratory Lab Results: Lab Results 06/14/18 Range/Units 23:56 WBC 13.0 H (3.5-10.8) 10^3/ul RBC 4.24 (4.00-5.40) 10^6/ul Hgb 11.8 L (12.0-16.0) g/dl Hct 35 (35-47) % MCV 83 (80-97) fL MCH 28 (27-31) pg MCHC 34 (31-36) g/dl RDW 14 (10.5-15) % Plt Count 376 (150-450) 10^3/ul MPV 6.6 L (7.4-10.4) fL Neut % (Auto) 83.1 % Lymph % (Auto) 8.5 % [place] % (Auto) 8.0 % Eos % (Auto) 0.1 % Baso % (Auto) 0.3 % Absolute Neuts (auto) 10.8 H (1.5-7.7) 10^3/ul Absolute Lymphs (auto) 1.1 (1.0-4.8) 10^3/ul Absolute Monos (auto) 1.0 H (0-0.8) 10^3/ul Absolute Eos (auto) 0 (0-0.6) 10^3/ul Absolute Basos (auto) 0 (0-0.2) 10^3/ul Absolute Nucleated RBC 0 10^3/ul Nucleated RBC % 0 Result Diagrams: 06/14/18 23:56 06/14/18 23:56 Lab Statement: Any lab studies that have been ordered have been reviewed, and results considered in the medical decision making process. Course/Dx - Course Course Of Treatment: This patient is a 38 year old female presenting to [facility] with a chief complaint of MHE. Patient states that she has not been able to get sleep and feels like she is a danger to herself. Patient states that she has very bad OCD. Bloodwork Obtained. Urinalysis Obtained. In the ED course the patient was given Potassium Chloride, Xanax. The pt is hemodynamically stable, alert and oriented x3. Patient will be discharged with a dx of anxiety. Patient is advised to follow up with PCP in 2 days. The patient is agreeable with this plan. - Differential Dx/Clinical Impression Provider Diagnosis: Anxiety Discharge - Sign-Out/Discharge Documenting (check all that apply): Patient Departure Patient Received Moderate/Deep Sedation with Procedure: No - Discharge Plan Condition: Stable Disposition: HOME Patient Education Materials: Anxiety (ED) Referrals: No Primary Care Phys,NOPCP [Primary Care Provider] - 2 Days Additional Instructions: Return to the ED for any new or worsening symptoms. Per completion of a mental health evaluation, you are cleared for release and do not require inpatient psychiatric hospitalization at this time. Please go to nearest emergency room or call 911 if safety concerns arise or condition worsens. Important Phone Numbers: [facility] [phone] Suicide Prevention and Crisis Services........................ [phone] National Suicide Prevention Lifeline............................ [phone] (3681) [facility]....................... [phone] Alcoholics Anonymous............................................... [facility].............. [phone] [facility] Police.............................................. [phone] [facility] for appointment: 24 hour crisis line [phone] Hours: Sunday: All services 8:30 am 5:00 pm; Limited services 5:00 7:00 pm Sunday: All services 8:30 am 5:00 pm; Limited services 5:00 7:00 pm Sunday: All services 10:00 am 5:00 pm; Limited services 5:00 7:00 pm : All services 8:30 am 5:00 pm; Limited services 5:00 7:00 pm Sunday: 8:30 am 5:00 pm Sunday: 10:00 am 4:00 pm Sunday: Closed - Billing Disposition and Condition Condition: STABLE Disposition: Home - Attestation Statements Document Initiated by Karyn: Yes Documenting Scribe: Francisco Javier Mcpherson Provider For Whom Karyn is Documenting (Include Credential): Pat Taylor MD Scribe Attestation: I, Francisco Javier Mcpherson scribed for Pat Taylor MD on 06/20/18 at 0631. Scribe Documentation Reviewed: Yes Provider Attestation: The documentation as recorded by the Francisco Javier cary accurately reflects the service I personally performed and the decisions made by me, Pat Taylor MD Status of Scribe Document: Viewed
[2018-06-15 00:24] LABS: ALT 11 U/L (7-52); AST 17 U/L (13-39); Albumin 4.8 g/dL (3.2-5.2); Albumin/Globulin Ratio 1.7 (1-3); Alkaline Phosphatase 61 U/L (34-104); Anion Gap 12 mmol/L (2-11); BUN/Creatinine Ratio 12.2 (8-20); Blood Urea Nitrogen 10 mg/dL (6-24); CO2 Carbon Dioxide 20 mmol/L (22-32); Calcium 9.3 mg/dL (8.6-10.3); Chloride 99 mmol/L (101-111); EGFR African American 95.4 (>60); EGFR Non-African American 78.9 (>60); Globulin 2.9 g/dL (2-4); Glucose 120 mg/dL (70-100); Potassium 3.1 mmol/L (3.5-5.0); Sodium 131 mmol/L (135-145); Total Protein 7.7 g/dL (6.4-8.9)
[2018-06-15 00:28] LABS: HCG Pregnancy < 0.60 mIU/mL
[2018-06-15 00:52] LABS: Acetaminophen < 15 mcg/mL; Alcohol < 10 mg/dL (<10); Salicylate < 2.50 mg/dL (<30)
[2018-06-15] MEDS ORDERED: Potassium Chlor TAB* 20 MEQ TAB.ER PO ONE (00:55)
[2018-06-15 01:08] LABS: TSH (Thyroid Stimulating Horm) 3.09 mcIU/mL (0.34-5.60)
[2018-06-15 01:32] LABS: Barbiturates Urine Screen None Detected (None Detect); Benzodiazepine Urine Screen Presumptive Positive (None Detect); Urine Cannabinoids Screen None Detected (None Detect)
[2018-06-15] MEDS ORDERED: ALPRAZolam TAB* 0.5 MG PO ONE ×2 (01:35→04:37)
[2018-06-15 01:36] LABS: Urine Appearance Clear; Urine Bacteria Absent (Absent); Urine Bilirubin Negative (Negative); Urine Blood 2+ (Negative); Urine Color Yellow; Urine Glucose Negative (Negative); Urine Ketones 2+ (Negative); Urine Nitrite Negative (Negative); Urine Protein Negative (Negative); Urine Red Blood Cell Trace(0-2/hpf) (Absent); Urine Specific Gravity 1.012 (1.010-1.030); Urine Squamous Epithelial Cell Present (Absent); Urine Urobilinogen Negative (Negative); Urine White Blood Cell Trace(0-5/hpf) (Absent)
[2018-06-15 07:08] VITALS: BP 132/81
== END 2018-06-15 00:16 | disposition home or self-care (01) ==
LOC: ED 22:19
DX: F41.9 Anxiety disorder, unspecified (principal); F42.9 Obsessive-compulsive disorder, unspecified; F32.9 Major depressive disorder, single episode, unspecified
CPT/HCPCS: 36415; 80053; 80307; 80320; 80329; 81003; 81015; 84443; 84702; 85025; 87086; 99283; A9270-GY; G0480

== ENCOUNTER 2018-06-15 07:36 | Emergency (ER) | payer OTHER ==
--- NOTE | 2018-06-15 08:27 | ED ---
Psychiatric Complaint - HPI Summary HPI Summary: This patient is a 38 year old F brought in by ambulance to [facility] with a chief complaint of insomnia since 6 days ago. The patient rates the pain 0/10 in severity. Symptoms aggravated by nothing. Symptoms alleviated by nothing. Patient reports she has not slept well recently due to anxiety and she is seeking relief to sleep. Patient denies SI or HI. Patient reports that she went to the pharmacy but was unable to fill her prescription for Ativan until . - History Of Current Complaint Chief Complaint: EDPsychosocial Time Seen by Provider: 06/15/18 07:45 Hx Obtained From: Patient Hx Last Menstrual Period: just finished, on OCPs, due to start new pack of pills today, 07/08/17 Onset/Duration: Gradual Onset, Lasting Days - 6 days, Still Present Timing: Constant Severity Initially: Mild Severity Currently: Mild Character: Anxious Aggravating Factor(s): Nothing Alleviating Factor(s): Nothing Associated Signs And Symptoms: Positive: Negative Related History: Positive For: Prior Psychiatric Issues Has Suicidal: Denies: Thoughts Has Homicidal: Denies: Thoughts - Allergies/Home Medications Allergies/Adverse Reactions: Allergies Allergy/AdvReac Type Severity Reaction Status Date / Time No Known Allergies Allergy Verified 05/07/17 17:42 PMH/Surg Hx/FS Hx/Imm Hx Endocrine/Hematology History: Denies: Hx Diabetes Cardiovascular History: Denies: Hx Hypertension Sensory History: Denies: Hx Legally Blind, Hx Deafness Opthamlomology History: Denies: Hx Legally Blind Psychiatric History: Reports: Hx Anxiety, Hx Depression, Other Psychiatric Issues/Disorders - insomnia Denies: Hx Eating Disorder, Hx of Violent Episodes Against Others - Surgical History Surgery Procedure, Year, and Place: none - Immunization History Date of Tetanus Vaccine: UTD Date of Influenza Vaccine: 02/2017 Infectious Disease History: No Infectious Disease History: Denies: Traveled Outside the [place] in Last 30 Days - Family History Known Family History: Negative: Hypertension, Diabetes - Social History Alcohol Use: None Hx Substance Use: No Substance Use Type: Reports: None Hx Tobacco Use: No Smoking Status (MU): Never Smoked Tobacco Review of Systems Negative: Fever Negative: Epistaxis Negative: Cough Negative: Vomiting Psychological: Other - insomnia Positive: Anxious All Other Systems Reviewed And Are Negative: Yes Physical Exam - Summary Physical Exam Summary: Appearance: The patient is well-nourished in no acute distress and in no acute pain. Skin: The skin is warm and dry and skin color reflects adequate perfusion. HEENT: The head is normocephalic and atraumatic. The pupils are equal and reactive. The conjunctivae are clear and without drainage. Nares are patent and without drainage. Mouth reveals moist mucous membranes and the throat is without erythema and exudate. The external ears are intact. The ear canals are patent and without drainage. The tympanic membranes are intact. Neck: The neck is supple with full range of motion and non-tender. There are no carotid bruits. There is no neck vein distension. Respiratory: Chest is non-tender. Lungs are clear to auscultation and breath sounds are symmetrical and equal. Cardiovascular: Heart is regular rate and rhythm. There is no murmur or rub auscultated. There is no peripheral edema and pulses are symmetrical and equal. Abdomen: The abdomen is soft and non-tender. There are normal bowel sounds heard in all four quadrants and there is no organomegaly palpated. Musculoskeletal: There is no back tenderness noted. Extremities are non-tender with full range of motion. There is good capillary refill. There is no peripheral edema or calf tenderness elicited. Neurological: Patient is alert and oriented to person, place and time. The patient has symmetrical motor strength in all four extremities. Cranial nerves are grossly intact. Deep tendon reflexes are symmetrical and equal in all four extremities. Psychiatric: The patient has an appropriate affect and does not exhibit any depression. The patient appears anxious. Triage Information Reviewed: Yes Vital Signs On Initial Exam: Initial Vitals Temp Pulse Resp BP Pulse Ox 99 F 110 22 168/72 100 06/15/18 07:40 06/15/18 07:40 06/15/18 07:40 06/15/18 07:40 06/15/18 07:40 Vital Signs Reviewed: Yes Diagnostics - Vital Signs Vital Signs Temp Pulse Resp BP Pulse Ox 06/15/18 07:40 99 F 110 22 168/72 100 - Laboratory Lab Statement: Any lab studies that have been ordered have been reviewed, and results considered in the medical decision making process. Course/Dx - Course Course Of Treatment: Ms. Wallis presented to the emergency department complaining that she was unable to sleep. She was apparently here a few days ago and got a prescription for Ativan and trazodone. She refuses to take trazodone as it makes her too foggy. She was unable to fill the Ativan prescription because she gets a monthly prescription for Ativan and she is not due until the which is next Sunday. She was given some Xanax yesterday but she says it didn' t help. She also has prescriptions monthly for Ambien but says she can't fill them yet either. I recommended to her that we give her Ativan and Ambien to go and temporize until she is able to fill her prescriptions. She may have to see her PCP or return to the emergency department in the interim. She was unhappy with that solution wanting to sleep here in the emergency department. It's a very busy Sunday morning and I told her she could sleep here but we would probably have to awaken her pretty quickly and she refused to have a security right home. At some point she apparently called her mother and her mother called us and reported that she believes the patient is unsafe to go home because she might hurt herself. She is currently awaiting a mental health eval. She did have a mental health eval last night in the emergency department and they felt she was stable for discharge but they did not have this collateral information. - Differential Dx/Clinical Impression Provider Diagnosis: Anxiety, Acute insomnia - Physician Notifications Discussed Care Of Patient With: Nancy Skaggs Time Discussed With Above Provider: 17:16 Instructed by Provider To: Other - patient will be re-evaluated in the morning Discharge - Sign-Out/Discharge Documenting (check all that apply): Sign-Out Patient - pending E Signing out patient TO: Pat Taylor Patient Received Moderate/Deep Sedation with Procedure: No - Discharge Plan Condition: Stable Referrals: Care [facility] [Outside] - Billing Disposition and Condition Condition: STABLE - Attestation Statements Document Initiated by Scribe: Yes Documenting Scribe: Padmini Gong Provider For Whom Karyn is Documenting (Include Credential): Jan Lo MD Scribe Attestation: Padmini Torres, scribed for Jan Lo MD on 06/15/18 at 1834. Scribe Documentation Reviewed: Yes Provider Attestation: The documentation as recorded by the Padmini cary accurately reflects the service I personally performed and the decisions made by me, Jan Lo MD Status of Scribe Document: Viewed
[2018-06-15] MEDS ORDERED: LORazepam TAB(*) 1 MG PO ONE ×2 (13:30→18:51)
--- NOTE | 2018-06-15 19:04 | ED ---
Progress - Progress Note Progress Note: This patient was signed out by Dr. Lo to Dr. Taylor, pending mental health evaluation. - Consult/PCP Time Called: 13:30 Course/Dx - Course Course Of Treatment: The patient was signed out by Dr. Lo to Dr. Taylor, awaiting mental health evaluation. The patient will be signed out by Dr. Taylor to Dr. Lo, pending MHU hold. - Diagnoses Provider Diagnoses: Anxiety, Acute insomnia - Provider Notifications Time Discussed With Above Provider: 17:16 Instructed by Provider To: Other - patient will be re-evaluated in the morning Discharge - Sign-Out/Discharge Documenting (check all that apply): Sign-Out Patient, Receiving Sign-Out Signing out patient TO: Jan Lo Receiving patient FROM: Jan Lo Patient Received Moderate/Deep Sedation with Procedure: No - Discharge Plan Condition: Stable Referrals: [facility] [Outside] - Attestation Statements Document Initiated by Scribe: Yes Documenting Scribe: Sam Borrero Provider For Whom Scribe is Documenting (Include Credential): Pat Taylor MD Scribe Attestation: Sam Torres, scribed for Pat Taylor MD on 06/16/18 at 0628. Status of Scribe Document: Ready
[2018-06-16] MEDS ORDERED: ALPRAZolam TAB* 0.5 MG PO ONE (00:39)
--- NOTE | 2018-06-16 08:51 | ED ---
Progress - Progress Note Progress Note: This patient was signed out from Dr. Taylor, awaiting completion of a mental health hold. - Consult/PCP Time Called: 13:30 Course/Dx - Course Course Of Treatment: Ms. Wallis went home with her parents when they arrived in the morning. She remained cooperative and stable all night. - Diagnoses Provider Diagnoses: Insomnia, Anxiety - Provider Notifications Time Discussed With Above Provider: 17:16 Instructed by Provider To: Other - patient will be re-evaluated in the morning Discharge - Sign-Out/Discharge Documenting (check all that apply): Patient Departure - discharge Patient Received Moderate/Deep Sedation with Procedure: No - Discharge Plan Condition: Stable Disposition: HOME Referrals: Care [facility] [Outside] - Billing Disposition and Condition Condition: STABLE Disposition: Home - Attestation Statements Document Initiated by Scribe: Yes Documenting Scribe: Yenny Alexander Provider For Whom Scribe is Documenting (Include Credential): Jan Lo MD Scribe Attestation: Yenny Torres, scribed for Jan Lo MD on 06/17/18 at 1144. Scribe Documentation Reviewed: Yes Provider Attestation: The documentation as recorded by the Yenny cary accurately reflects the service I personally performed and the decisions made by Jan johnson MD Status of Scribe Document: Viewed
[2018-06-16] MEDS ORDERED: Acetaminophen TAB* 325 MG PO ONE (09:51)
[2018-06-16 12:27] VITALS: BP 116/75
== END 2018-06-16 12:37 | disposition home or self-care (01) ==
LOC: ED 07:36
DX: G47.00 Insomnia, unspecified (principal); F41.9 Anxiety disorder, unspecified; F32.9 Major depressive disorder, single episode, unspecified
CPT/HCPCS: 99284; A9270-GY

== ENCOUNTER 2018-06-16 22:06 | Emergency (ER) | payer OTHER ==
--- NOTE | 2018-06-17 00:28 | ED ---
Shortness of Breath - HPI Summary HPI Summary: 38-year-old female presents with chest pain for the 2 days. States she was seen here yesterday for the same. she states that it has persisted. States that it makes her very anxious. She states it feels like muscle spasms of the chest wall. She denies any palpitations. she states that she gets anxious and that causes short of breath. She states that she feels that when she distracts herself she does not notice the pain anymore. States when she's focused on it it hurts more. She tried a Lidoderm patch on the area with minimal relief. She has not tried anything else. She denies any suicidal or homicidal ideations. She does not want mental health exam. She denies any cough. No recent illness. No recent travel. No family history of blood clots. she is not on control smoker. Denies any pain or swelling in calf muscles. is not a smoker. - History of Current Complaint Chief Complaint: EDGeneral Time Seen by Provider: 06/16/18 23:57 - Allergy/Home Medications Allergies/Adverse Reactions: Allergies Allergy/AdvReac Type Severity Reaction Status Date / Time No Known Allergies Allergy Verified 06/16/18 23:54 PMH/Surg Hx/FS Hx/Imm Hx Endocrine/Hematology History: Denies: Hx Diabetes Cardiovascular History: Denies: Hx Hypertension Sensory History: Denies: Hx Legally Blind, Hx Deafness Opthamlomology History: Denies: Hx Legally Blind Psychiatric History: Reports: Hx Anxiety, Hx Depression, Other Psychiatric Issues/Disorders - insomnia Denies: Hx Eating Disorder, Hx of Violent Episodes Against Others - Surgical History Surgery Procedure, Year, and Place: none - Immunization History Date of Tetanus Vaccine: unk Date of Influenza Vaccine: none Infectious Disease History: No Infectious Disease History: Denies: Traveled Outside the [place] in Last 30 Days - Family History Known Family History: Positive: Cardiac Disease Negative: Hypertension, Diabetes, Blood Disorder - Social History Alcohol Use: None Hx Substance Use: No Substance Use Type: Reports: None Hx Tobacco Use: No Smoking Status (MU): Former Smoker Review of Systems Negative: Fever Positive: Chest Pain Positive: Shortness Of Breath. Negative: Cough All Other Systems Reviewed And Are Negative: Yes Physical Exam Triage Information Reviewed: Yes Vital Signs On Initial Exam: Initial Vitals Temp Pulse Resp BP Pulse Ox 97.7 F 95 20 114/80 98 06/16/18 22:08 06/16/18 22:08 06/16/18 22:08 06/16/18 22:08 06/16/18 22:08 Vital Signs Reviewed: Yes Appearance: Positive: Well-Appearing Skin: Positive: Warm, Dry Head/Face: Positive: Normal Head/Face Inspection Eyes: Positive: Normal, Conjunctiva Clear ENT: Positive: Pharynx normal Respiratory/Lung Sounds: Positive: Clear to Auscultation, Breath Sounds Present , Other - reproducible chest pain Cardiovascular: Positive: Normal, RRR Musculoskeletal: Positive: Normal Neurological: Positive: Normal Psychiatric: Positive: Anxious Diagnostics - Vital Signs Vital Signs Temp Pulse Resp BP Pulse Ox 06/16/18 22:08 97.7 F 95 20 114/80 98 - Laboratory Lab Statement: Any lab studies that have been ordered have been reviewed, and results considered in the medical decision making process. - EKG No standard instances Cardiac Rate: NL EKG Rhythm: Sinus Rhythm Summary of EKG Findings: sinus rhythm Course/Dx - Course Course Of Treatment: 38-year-old female presents with chest pain for the 2 days. States she was seen here yesterday for the same. she states that it has persisted. States that it makes her very anxious. She states it feels like muscle spasms of the chest wall. She denies any palpitations. she states that she gets anxious and that causes short of breath. She states that she feels that when she distracts herself she does not notice the pain anymore. States when she's focused on it it hurts more. She tried a Lidoderm patch on the area with minimal relief. She has not tried anything else. She denies any suicidal or homicidal ideations. She does not want mental health exam. She denies any cough. No recent illness. No recent travel. No family history of blood clots. she is not on control smoker. Denies any pain or swelling in calf muscles. is not a smoker. On exam has reproducible chest pain. Discuss with patient and patient does not want lab work. states able to do yoga daily without any symptoms. has no risk factors for PE. EKG was shows sinus rhythm. Discussed will give a dose of Valium for muscle spasm type pain. We'll prescribe Flexeril for the muscle spasm pain. Told need to follow-up about anxiety. Patient understands agrees with plan. - Diagnoses Differential Diagnosis/HQI/PQRI: Positive: UT, Pulmonary Embolism, Other - chest wall Provider Diagnoses: Chest wall pain Discharge - Sign-Out/Discharge Documenting (check all that apply): Patient Departure Patient Received Moderate/Deep Sedation with Procedure: No - Discharge Plan Condition: Stable Disposition: HOME Prescriptions: Cyclobenzaprine TAB* [Flexeril 10 MG TAB*] 10 mg PO TID PRN #15 tab PRN Reason: Pain Patient Education Materials: Chest Wall Pain (ED) [facility]errals: [facility] [Outside] Additional Instructions: follow up with sara alexander take tyenlol or ibuprofen for pain every 6 hours as needed for pain Take flexeril three times a day as needed for pain focus on managing your anxiety Return to ED if develop any new or worsening symptoms - Billing Disposition and Condition Condition: STABLE Disposition: Home
[2018-06-17] MEDS ORDERED: Diazepam TAB(*) 5 MG PO ONE (00:32)
[2018-06-17 00:49] VITALS: BP 134/91
== END 2018-06-17 00:49 | disposition home or self-care (01) ==
LOC: ED 22:06
DX: R07.89 Other chest pain (principal); R06.02 Shortness of breath; Z82.49 Family history of ischemic heart disease and other diseases of the circulatory system; Z87.891 Personal history of nicotine dependence
CPT/HCPCS: 93005; 99282; A9270-GY

== ENCOUNTER 2018-06-17 20:11 | Observation (INO) | payer OTHER ==
--- NOTE | 2018-06-17 21:34 | ED ---
Complex/Multi-Sys Presentation - HPI Summary HPI Summary: Patient is a 38 y/o F presenting to ED with complaints of anxiety, SOB, and body spasms which she characterizes as a seizure. She has been here for complaints of SOB and anxiety each day for the past four days, making today the fifth day in a row she has come to ED. In room, mother, Leonela, is present. Patient states that she had a "seizure" today that she claims may be related to trazodone withdrawal and her Lamictol dosage change. She states that she reduced her lamictal from 400 mg to 300 mg three weeks ago. Patient has stopped taking her trazodone as it makes her "foggy". Mother states that she witnessed the "seizure" episode. She states that at first, the patient's hands were shaking. Mother had thought that the patient was simply experiencing chills. Sx progressively worsened, with mother reporting that patient was jerking her head and arms randomly. She states that patient was conscious, but confused and stating, "I'm not right." Mother states that patient had told her that she was "seeing things that weren't there." Mother notes that patient was not clenching fists, teeth, or frothing. On triage, pain is rated 8/10, nothing is noted to aggravate/alleviate Sx. In room, pulse is 95, o2 100, BP 138/83. Home medications and allergies are reviewed. - History Of Current Complaint Chief Complaint: EDGeneral Time Seen by Provider: 06/17/18 21:17 Hx Obtained From: Patient Onset/Duration: Still Present - anxiety, SOB, Resolved - SEIZURE Timing: Constant - anxiety, SOB, Intermittent, Lasting: - seizure Severity Currently: Severe - on triage, severity is rated 8/10 Location: Negative Aggravating Factor(s): nothing Alleviating Factor(s): nothing Associated Signs And Symptoms: Positive: SOB, Other - anxiety, body spasms, visual hallucinations - Allergies/Home Medications Allergies/Adverse Reactions: Allergies Allergy/AdvReac Type Severity Reaction Status Date / Time No Known Allergies Allergy Verified 06/17/18 20:20 Home Medications: Home Medications Ibuprofen TAB* [Motrin TAB* 400 MG] 400 mg PO Q6H PRN 06/17/18 [History Confirmed 06/17/18] Zolpidem Tartrate 10 mg PO BEDTIME PRN 06/17/18 [History Confirmed 06/17/18] PMH/Surg Hx/FS Hx/Imm Hx Endocrine/Hematology History: Denies: Hx Diabetes Cardiovascular History: Denies: Hx Hypertension Sensory History: Denies: Hx Legally Blind, Hx Deafness Opthamlomology History: Denies: Hx Legally Blind Psychiatric History: Reports: Hx Anxiety, Hx Depression, Other Psychiatric Issues/Disorders - insomnia Denies: Hx Eating Disorder, Hx of Violent Episodes Against Others - Surgical History Surgery Procedure, Year, and Place: none - Immunization History Date of Tetanus Vaccine: unk Date of Influenza Vaccine: none Infectious Disease History: No Infectious Disease History: Reports: Traveled Outside the [place] in Last 30 Days - Family History Known Family History: Positive: Cardiac Disease Negative: Hypertension, Diabetes, Blood Disorder - Social History Alcohol Use: None Hx Substance Use: No Substance Use Type: Reports: None Hx Tobacco Use: No Smoking Status (MU): Former Smoker Review of Systems Positive: Shortness Of Breath Neurological: Other - POSITIVE - BODY SPASMS Psychological: Other - VISUAL HALLUCINATIONS Positive: Anxious All Other Systems Reviewed And Are Negative: Yes Physical Exam - Summary Physical Exam Summary: VITAL SIGNS: Reviewed. GENERAL: Patient is a well-developed and nourished female who is lying comfortable in the stretcher. Patient is not in any acute respiratory distress. HEAD AND FACE: No signs of trauma. No ecchymosis, hematomas or skull depressions. No sinus tenderness. EYES: PERRLA, EOMI x 2, No injected conjunctiva, no nystagmus. EARS: Hearing grossly intact. Ear canals and tympanic membranes are within normal limits. MOUTH: Oropharynx within normal limits. NECK: Supple, trachea is midline, no adenopathy, no JVD, no carotid bruit, no c- spine tenderness, neck with full ROM. CHEST: Symmetric, no tenderness at palpation LUNGS: Clear to auscultation bilaterally. No wheezing or crackles. CVS: Regular rate and rhythm, S1 and S2 present, no murmurs or gallops appreciated. ABDOMEN: Soft, non-tender. No signs of distention. No rebound no guarding, and no masses palpated. Bowel sounds are normal. EXTREMITIES: FROM in all major joints, no edema, no cyanosis or clubbing. NEURO: Alert and oriented x 3. No acute neurological deficits. Speech is normal and follows commands. SKIN: Dry and warm Triage Information Reviewed: Yes Vital Signs On Initial Exam: Initial Vitals Temp Pulse Resp BP Pulse Ox 98.6 F 99 20 117/84 99 06/17/18 20:15 06/17/18 20:15 06/17/18 20:15 06/17/18 20:15 06/17/18 20:15 Vital Signs Reviewed: Yes Diagnostics - Vital Signs Vital Signs Temp Pulse Resp BP Pulse Ox 06/17/18 21:28 97 23 138/83 100 06/17/18 21:27 17 06/17/18 20:15 98.6 F 99 20 117/84 99 - Laboratory Result Diagrams: 06/17/18 21:49 06/17/18 21:49 Lab Statement: Any lab studies that have been ordered have been reviewed, and results considered in the medical decision making process. Re-Evaluation - Re-Evaluation First Eval Re-Evaluation Time: 21:37 Comment: Patient was given Ativan 1 mg prescription on 05/21/18 to be used as one tablet PRN for anxiety. Patient has run out of Ativan at this point, patient unwilling to provide date when she ran out of Ativan. Review of nurse's notes from past four visits shows several documentations of patient requesting Ativan, Ambien, and Xanax multiple times. Complex Multi-Symp Course/Dx Course Of Treatment: Patient is a 38 y/o F presenting to ED with complaints of anxiety, SOB, and body spasms which she characterizes as a seizure. She has been here for complaints of SOB and anxiety each day for the past four days, making today the fifth day in a row she has come to ED. In room, mother, Leonela, is present. Patient states that she had a "seizure" today that she claims may be related to trazodone withdrawal and her Lamictol dosage change. She states that she reduced her lamictal from 400 mg to 300 mg three weeks ago. Patient has stopped taking her trazodone as it makes her "foggy". Mother states that she witnessed the "seizure" episode. She states that at first, the patient' s hands were shaking. Mother had thought that the patient was simply experiencing chills. Sx progressively worsened, with mother reporting that patient was jerking her head and arms randomly. She states that patient was conscious, but confused and stating, "I'm not right." Mother states that patient had told her that she was "seeing things that weren't there." Mother notes that patient was not clenching fists, teeth, or frothing. Physical exam was unremarkable. Patient was given Ativan 1 mg prescription on 05/21/18 to be used as one tablet PRN for anxiety. Patient has run out of Ativan at this point , patient unwilling to provide date when she ran out of Ativan. Review of nurse' s notes from past four visits shows several documentations of patient requesting Ativan, Ambien, and Xanax multiple times. Labs showed MPV 7, absolute monos 1, sodium 126, potassium 2.9, chloride 96, carbon dioxide 19, glucose 130, total creatine kinase 712, beta HCG < 0.6, serum alc < 10. During ED course, patient received fluids, Klor Con Er Tab 40 meq PO ED ONCE. Patient s case was discussed with Dr. Miles at 2230, Dr. Miles accepts for admission. Dx of benzodiazepine dependence, mild rhabdomyolysis. - Diagnoses Provider Diagnoses: Benzodiazepine dependence - Physician Notifications Discussed Care Of Patient With: Maile Miles Time Discussed With Above Provider: 22:30 Instructed by Provider To: Other - Patient's case was discussed with Dr. Miles at 2230, Dr. Miles accepts for admission. Discharge - Sign-Out/Discharge Documenting (check all that apply): Patient Departure - admit - Discharge Plan Condition: Stable Disposition: ADMITTED TO [facility] Referrals: No Primary Care Phys,NOPCP [Primary Care Provider] - - Attestation Statements Document Initiated by Scribe: Yes Documenting Scribe: XIANG MIGUEL Provider For Whom Scribe is Documenting (Include Credential): BRISEIDA BECKER MD Scribe Attestation: I, XIANG MIGUEL , scribed for BRISEIDA BECKER MD on 06/17/18 at 4090. Status of Scribe Document: Ready
[2018-06-17 22:06] LABS: ABS Basophils 0 10^3/ul (0-0.2); ABS Eosinophils 0.1 10^3/ul (0-0.6); ABS Lymphocytes 2.6 10^3/ul (1.0-4.8); ABS Neutrophils 6.3 10^3/ul (1.5-7.7); ABS Nucleated RBC 0 10^3/ul; Hematocrit 39 % (35-47); Hemoglobin 12.5 g/dl (12.0-16.0); Lymphocyte % 26.1 %; Mean Corpuscular HGB Conc 33 g/dl (31-36); Mean Corpuscular Hemoglobin 28 pg (27-31); Mean Corpuscular Volume 86 fL (80-97); Nucleated Red Blood Cells % 0.2; Platelet Count 302 10^3/ul (150-450); Red Cell Distribution Width 14 % (10.5-15)
[2018-06-17 22:15] LABS: ALT 14 U/L (7-52); AST 27 U/L (13-39); Albumin 4.6 g/dL (3.2-5.2); Albumin/Globulin Ratio 1.6 (1-3); Alkaline Phosphatase 65 U/L (34-104); Anion Gap 11 mmol/L (2-11); BUN/Creatinine Ratio 11.1 (8-20); Blood Urea Nitrogen 8 mg/dL (6-24); CO2 Carbon Dioxide 19 mmol/L (22-32); Calcium 9.1 mg/dL (8.6-10.3); Chloride 96 mmol/L (101-111); Creatine Kinase 712 U/L (10-223); EGFR African American 110.9 (>60); EGFR Non-African American 91.7 (>60); Globulin 2.9 g/dL (2-4); Glucose 130 mg/dL (70-100); Potassium 2.9 mmol/L (3.5-5.0); Sodium 126 mmol/L (135-145); Total Protein 7.5 g/dL (6.4-8.9)
[2018-06-17 22:19] LABS: HCG Pregnancy < 0.60 mIU/mL
[2018-06-17] MEDS ORDERED: NS 0.9% 1000 ML** 1,000 ML IV ONE (22:24)
[2018-06-17] MEDS ORDERED: Potassium Chlor TAB* 20 MEQ TAB.ER PO ONE (22:24)
[2018-06-17 22:34] LABS: Alcohol < 10 mg/dL (<10)
[2018-06-17 23:02] LABS: Urine Appearance Clear; Urine Bilirubin Negative (Negative); Urine Blood Negative (Negative); Urine Color Colorless; Urine Glucose Negative (Negative); Urine Ketones Negative (Negative); Urine Nitrite Negative (Negative); Urine Protein Negative (Negative); Urine Specific Gravity 1.001 (1.010-1.030); Urine Urobilinogen Negative (Negative)
[2018-06-17 23:16] LABS: Barbiturates Urine Screen None Detected (None Detect); Benzodiazepine Urine Screen None Detected (None Detect); Urine Cannabinoids Screen None Detected (None Detect)
[2018-06-18] MEDS ORDERED: lamoTRIgine TAB(*) 100 MG PO SCH ×2 (01:00→18:00)
[2018-06-18] MEDS: Zolpidem TAB* 10 MG PO PRN ×2 (01:02→21:23)
--- NOTE | 2018-06-18 01:32 | HP ---
HISTORY AND PHYSICAL: DATE OF ADMISSION: 06/17/18 PRIMARY CARE PROVIDER: The patient does not have any primary care provider; she sees [facility]. CHIEF COMPLAINT: Having a seizure. HISTORY OF PRESENT ILLNESS: This is a 38-year-old female with past medical history of mood disorder, anxiety, OCD, who used to be on trazodone and Ativan. She has taken herself off of trazodone as well as Ativan. She also uses Ambien for sleep chronically and states that has been helping her, but not as good, has been taking Lamictal 400, but has weaned down to [address] Rowley in [place]. The patient does not have a psychiatrist here and is trying to get established here with a psychiatrist. The patient has been in the emergency room for the past 5 days. This will be her fifth visit in 5 days, she has been coming because of inability to sleep, anxiety. She now presents to the emergency room because of seizures and possible withdrawal versus dependent issues. The patient's mother is at bedside who witnessed the seizure, the seizure is described as shaking that initially started and then her head started moving and there was jerking of the extremities. The episode was not associated with any loss of urine or stool, the patient does not have any recollection of the episode. It is unclear to me based on the history provided if there was any post episode confusion or unresponsiveness. The patient reports no head trauma. The patient also reports chest pain, which is worsened when she pays attention to her chest pain and chest pain is nonexistent when she does not think about the chest pain. The patient was given Flexeril in her most recent emergency room visit and the patient took 1 pill today of the Flexeril and states that it made her feel very loopy. PAST MEDICAL HISTORY: 1. Mood disorder. 2. Anxiety. 3. Insomnia. 4. OCD. PAST SURGICAL HISTORY: None. MEDICATIONS: 1. Lamotrigine 300 mg daily. 2. Zolpidem 10 mg at bedtime as needed. 3. Ibuprofen 400 mg every 6 hours as needed. 4. Flexeril, which was given to her, the patient took first tablet and had issues and does not want it again. ALLERGIES: No known drug allergies. FAMILY HISTORY: Mother: No medical issues. Father: No medical issues. SOCIAL HISTORY: The patient lives in an apartment with her dog, is a student at [employer], does not smoke, occasional alcohol use. She reports no use of cocaine, marijuana, or heroin. REVIEW OF SYSTEMS: She does not have any fevers, no chills, no shortness of breath, no palpitations, no change in her vision or hearing, no sore throat, no sinus congestion, no abdominal pain, no nausea, no vomiting, no diarrhea, she does not have any thoughts of hurting herself or anyone else, otherwise review of systems was done as per HPI, otherwise is negative. PHYSICAL EXAMINATION BP: 128/78, HR: 82, RR:14, O2: 100% on Room Air, Temp: 98.6F GENERAL: This is a well-developed, well-nourished female, lying in an ER stretcher in no acute distress. HEENT: Pupils are equal, round, and reactive to light, atraumatic, normocephalic. Tongue: There is no evidence of tongue bite. RESPIRATORY: There is no tachypnea, no use of accessory muscles. HEART: There is no chest wall tenderness, regular rate and rhythm, no murmurs. ABDOMEN: Bowel sounds are normoactive in all 4 quadrants, abdomen is soft, nontender, nondistended. EXTREMITIES: There is no lower extremity edema, no calf tenderness. NEUROLOGICAL: Alert and oriented x3, speech is clear and coherent, there is no facial droop, moves all 4 extremities without any issues. LABORATORY DATA AND IMAGING: Hemoglobin of 12.5, hematocrit of 39, platelets of 302, WBC of 10.0. Urine tox is negative for opiates, barbiturates, phencyclidine, amphetamine, benzodiazepine, cocaine, cannabinoids. Serum alcohol is less than 10, urinalysis showed specific gravity of 1.001, otherwise is negative for nitrites, bilirubin, urobilinogen, leukocyte esterases. Sodium of 126, potassium of 2.9, chloride of 96, bicarb of 19, glucose of 130. CK of 712. Beta-HCG of less than 0.60. IMPRESSION AND PLAN: 1. Possible Seizure: Possible withdrawal syndrome: At this point, we will monitor the patient, place on seizure precaution. I have ordered an EEG. 2. Hyponatremia: The patient appears dehydrated, gentle IV hydration. 3. Hypokalemia: Repletion has been ordered. 4. Mood disorder: Continue Lamictal. 5. At this point, I will hold benzodiazepine for the patient. 6. Insomnia: Continue Ambien as needed. 7. Regular diet. 8. Activity as tolerated. 9. I have also ordered a social work consult for possible referral to outpatient psychiatry. [id number]/[facility]PS #: [id number] SERGE
[2018-06-18] MEDS ORDERED: Nitroglycerin TAB 0.4 MG* 0.4 MG TAB SL ONE (01:50)
[2018-06-18] MEDS: Acetaminophen TAB* 325 MG PO PRN ×2 (02:17→13:02)
[2018-06-18] MEDS: NS 0.9% w/ 40 Meq KCL 1000 ML* 1,000 ML IV SCH ×2 (05:56→17:11)
[2018-06-18 06:35] LABS: BUN/Creatinine Ratio 9.3 (8-20); Calcium 8.8 mg/dL (8.6-10.3); EGFR African American 105.8 (>60); EGFR Non-African American 87.4 (>60); Potassium 4.2 mmol/L (3.5-5.0)
[2018-06-18 06:41] LABS: CKMB ng/mL 4.1 ng/mL (0.6-6.3)
[2018-06-18] MEDS ORDERED: hydrOXYzine HCL TAB* 25 MG PO PRN (10:56)
--- NOTE | 2018-06-18 16:39 | CONS ---
CONSULTATION REPORT: DATE OF CONSULT: 06/18/18 ATTENDING CLINICIAN: Janis Fuller NP CONSULTING PHYSICIAN: Dr. Ever Salinas. REASON FOR CONSULT: Acute confusion and possible misuse of sedatives and hypnotics. SUBJECTIVE HISTORY: The patient is a 38-year-old white and female with a history of affective problems, anxiety and OCD, who had made 5 trips to the emergency room in the span of 5 days with complaints of anxiety and insomnia. On the 5th such visit, she presented with what her parents described as a seizure in which she started moving seemingly involuntarily with jerking of her extremities. This episode was not associated with loss of urine or stool and the patient did not have any recollection of it afterwards. She was held overnight on observation status and seemed to get a reasonable amount of sleep with 10 mg of Ambien; however, in the morning, she presented as confused, disoriented and asking questions while revealing that she thought she was in [place]. When I met with her, the patient acknowledged that she has made several trips to the ED, feeling extremely restless, anxious, unable to sleep. 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 She returned to this community around the middle of May and promptly had difficulty sleeping largely secondary to the change in time zones. She has been treated extensively for insomnia in the past by a psychiatrist, named, Dr. Indra Rowley in [place], [place]. I note through the state controlled substance web page that on the 05/21/18 he prescribed her 90 tablets of 1 mg lorazepam and 60 tablets of 10 mg zolpidem. The patient states that over the ensuing 2 weeks, she overutilized these due to her problems with sleep and then ran out. She sought treatment at our emergency room several times and received some short term prescriptions for trazodone which she similarly overutilized. The patient feels like she became toxic on trazodone, and at one point actually decreased her own dose of lamotrigine from 500 mg nightly to 300 mg nightly. The patient is now acknowledging that over utilization of medications has been an issue for her. Symptomatically, she is endorsing extreme insomnia, restlessness, inability to focus, inability to do work at school, anxiety, and feelings of being unsafe. She is denying suicidal or homicidal ideations. For collateral information, I spoke with her mother, Leonela Wallis, who indicates that over-utilization of medication is not new to this patient. The mother seemed to agree that having a prescribing psychiatrist so far away was problematic. At this time, the patient is agreeable with referral to the [facility] at [employer] for both psychotherapy and medication management. PSYCHIATRIC HISTORY: The patient has previous diagnoses of obsessive- compulsive disorder; anxiety disorder, NOS; and insomnia. She does indicate that a previous trial of escitalopram caused treatment emergent yoseph. Other past medication trials have included Seroquel, which caused daytime sedation, Pristiq and Prozac which were ineffective. Currently, her psychiatrist is Dr. Indra Rowley in [place], who has been her treating psychiatrist since 2012. The patient does have a history of 2 separate psychiatric inpatient hospitalizations, the first in 2011 with anxiety, the second in 2013 with severe depression and passive suicidal ideations. Both of these hospitalizations were followed by extensive outpatient day treatment. In the past, the patient has received a course of CBT on an outpatient basis. She apparently just signed up for group psychotherapy at the [facility] in [place], but has not received further treatment there. I understand that in 2017, she was treated for several months by a local nurse practitioner, named Eliana Cyr; however, Ms. Cyr did not agree to continue treating the patient as she was apparently overutilizing Ambien at that time. 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 She smokes cannabis recreationally on occasion and to help her sleep, although not much recently. She is a social alcohol drinker. She has no history of tobacco abuse. PAST MEDICAL HISTORY: Noncontributory. MEDICATIONS: Currently she takes: 1. Ambien 10 to 20 mg nightly. 2. Lamictal 500 mg p.o. q.h.s. 3. Ativan 1 mg p.r.n. for anxiety. ALLERGIES: She is not allergic to any known medications. FAMILY HISTORY: Significant for anxiety in her mother's side of the family and bipolar in her father's side of the family including paternal aunt with bipolar. SOCIAL HISTORY: The patient was born and raised in the [facility] to an intact family. Her parents are still together. She has a younger sister who is 33. The patient did her undergraduate work at [employer], graduating in 2004. 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 In 2014, she was accepted and briefly attended [employer]; however, left secondary to problems with anxiety. In 2015, she moved to [place] where she started law school at [employer]. She is doing adequately and is in her last semester; however, she has been missing classes so far this semester. The patient was once in 2006 and later in 2008. She has no children. Currently, she is single. She is not sexually active and has no history of sexually transmitted diseases. She lives alone. She self-identifies as a Christianity from the [employer] denomination. She has no history of significant legal problems. MENTAL STATUS EXAM: The patient is a young, female, who is dressed in a patient gown. She is sitting up in bed, making good eye contact. She is calm, cooperative and easy to establish a rapport with and this clinician finds her very pleasant to talk to. Speech has a normal rate, tone, and volume. Mood appears to be anxious with a corresponding anxious affect. Thought process is linear, goal directed. Thought content is significant for concerns over her difficulty sleeping. She is denying suicidal or homicidal ideations. She denies auditory or visual hallucinations. Insight and judgment are somewhat impaired given her misutilization of controlled substances including lorazepam and zolpidem. Cognitively, she is awake and alert with what would appear to be high average intellect given her educational attainment history. 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 Bogard II: Deferred. IMPRESSION: The patient is a 38-year-old , white and female who is a law student at [employer], who just returned to this community from an extended overseas trip to [place], who suffered from significant jet lag and was misutilizing narcotic, hypnotics and sedatives for several weeks until running out of these. She was unable to pick up and delivery driver a refill at the pharmacy because it was premature and started overutilizing trazodone. She presented with confusion and a questionable episode of seizure. At this point, her head imaging study was normal and I suspect strongly that her EEG will be normal as well, although we still await the results for this. I do believe that given her history of antidepressant-induced yoseph, circadian related insomnia and family history of bipolar that she herself has bipolar affective condition. We discussed treatment for this and I am recommending initiation of lurasidone as well as normalization of her lamotrigine therapy. I have discussed these results not only with the patient, but also with her mother and with her attending provider, nurse practitioner, Janis Fuller. I have left a message with the patient's outpatient psychiatrist, Dr. Indra Rowley in [place], [place], but await hearing back from him. RECOMMENDATIONS TO PRIMARY TEAM: Psychiatry will write orders to increase the patient's lamotrigine from 300 to 400 mg nightly. I will start a trial of lurasidone 20 mg p.o. q.h.s. and she can take this along with 10 mg of zolpidem. In addition, I will be consulting the social work service to get the patient hooked in with more comprehensive mental health treatment at the [facility] at [facility]. Psychiatry will continue to follow the patient. Thank you for the interesting consult. [id number]/LUCIA #: [id number] SERGE
--- NOTE | 2018-06-18 17:55 | PN ---
Subjective Date of Service: 06/18/18 Interval History: Patient seen and examined. Was having periods of confusion today per RN. Requested psychiatric consult. When patient examined in the afternoon, she appears appropriate. States she got some sleep last night but still feels anxious and tired. Denies SOB, no chest pain, no fevers or chills. Contracts for safety with staff. Objective Active Medications: Acetaminophen (Tylenol Tab*) 650 mg PO Q6H PRN PRN Reason: FEVER/PAIN Last Admin: 06/18/18 13:02 Dose: 650 mg Hydroxyzine HCl (Atarax Tab*) 25 mg PO Q6H PRN PRN Reason: ANXIETY Last Admin: 06/18/18 13:02 Dose: 25 mg Lamotrigine (Lamictal Tab(*)) 400 mg PO QPM JOSSELYN Last Admin: 06/18/18 17:06 Dose: 400 mg Lurasidone HCl (Latuda) 20 mg PO BEDTIME JOSSELYN Zolpidem Tartrate (Ambien Tab*) 10 mg PO BEDTIME PRN PRN Reason: INSOMNIA Last Admin: 06/18/18 01:02 Dose: 10 mg Vital Signs - 8 hr 06/18/18 15:32 Temperature 98.8 F Pulse Rate 85 Respiratory 16 Rate Blood Pressure 123/68 (mmHg) O2 Sat by Pulse 100 Oximetry Oxygen Devices in Use Now: None Appearance: alert, NAD Eyes: No Scleral Icterus, PERRLA Ears/Nose/Mouth/Throat: NL Teeth, Lips, Gums, Mucous Membranes Moist Neck: NL Appearance and Movements; NL JVP, Trachea Midline Respiratory: Symmetrical Chest Expansion and Respiratory Effort, Clear to Auscultation Cardiovascular: NL Sounds; No Murmurs; No JVD, RRR, No Edema Abdominal: NL Sounds; No Tenderness; No Distention Extremities: No Edema, No Clubbing, Cyanosis Skin: No Rash or Ulcers, No Nodules or Sclerosis Neurological: Alert and Oriented x 3, NL Gait Nutrition: Taking PO's Result Diagrams: 06/17/18 21:49 06/18/18 05:55 Diagnostic Imaging: Patient Name: RODRIGO HUNG Medical Record#: [id number] Ordering Physician: Janis Fuller BAND SINGER Acct.#: [id number] : 1980 Age: 38 Sex: F Location: 4 [facility] - MEDICAL/TELEMETRY Exam Date: 06/18/18902 ADM Status: ADM Patricia Order Information: CT BRAIN WO Accession Number: [id number] CPT: 35683 HISTORY: seizure COMPARISONS: None TECHNIQUE: Multiple contiguous axial CT scans were obtained of the head without intravenous contrast. FINDINGS: HEMORRHAGE/INFARCT: There is no hemorrhage or acute infarct. MASSES/SHIFT: There is no mass or shift. EXTRA-AXIAL SPACES: There are no extra-axial fluid collections. SULCI AND VENTRICLES: The sulci and ventricles are normal in size and position for the patient's stated age. CEREBRUM: There are no focal parenchymal abnormalities. BRAINSTEM: There are no focal parenchymal abnormalities. CEREBELLUM: There are no focal parenchymal abnormalities. VESSELS: The vessels are grossly normal. PARANASAL SINUSES: The paranasal sinuses are clear. ORBITS: The orbits are unremarkable. BONES AND SOFT TISSUE: No bone or soft tissue abnormalities are noted. OTHER: None IMPRESSION: NO ACUTE INTRACRANIAL PATHOLOGY. <Electronically signed by Andrey Hays MD in [place]> 06/18/18 104 Dictated By: Andrey Hays MD Dictated Date/Time: 06/18/18 104 Transcribed Date/Time: 06/18/181039 Assess/Plan/Problems-Billing Assessment: This is a 38 year old female with known psychiatric history that presented to ER with complaints of severe insomnia and "seizure" activity. - Patient Problems (1) Mood disorder Code(s): F39 - UNSPECIFIED MOOD [AFFECTIVE] DISORDER SNOMED Code(s): 28362716 Comment: - Likely history of bipolar - Consult with Dr. Salinas appreciated - Increased lamictal, added latuda - Will need close outpatient follow up with [facility] (2) Insomnia Code(s): G47.00 - INSOMNIA, UNSPECIFIED SNOMED Code(s): 348332783 Comment: - Severe lack of sleep after traveling - CT head negative - "seizure " activity is probably not a a true seizure disorder, EEG read pending - Misuse of ambien and benzos, may be unintentional, needs close follow up - Per psych recs, may restart ambien 10mg tonight - Hydroxyzine PRN anxiety (3) Confusion Current Visit: Yes Status: Acute Code(s): R41.0 - DISORIENTATION, UNSPECIFIED SNOMED Code(s): 058949901 (4) Elevated CPK Code(s): R74.8 - ABNORMAL LEVELS OF OTHER SERUM ENZYMES SNOMED Code(s): 758567391 Comment: - Likely 2/2 stress and lack of sleep, low on the differential for true seizures - Also with electrolyte abnormalities now repleted and resolved - Will stop IVF and recheck labs in AM (5) Chest wall pain Code(s): R07.89 - OTHER CHEST PAIN SNOMED Code(s): 192295543 Comment: - Very atypical - Does not appear to be cardiac in origin - Reproducible, stephaniekrufina, will order NSAIDS only Status and Disposition: Inpatient, likely DC tomorrow.
[2018-06-18] MEDS ORDERED: Ibuprofen TAB* 400 MG PO PRN (17:59)
[2018-06-18] MEDS ORDERED: Lurasidone(*) 20 MG TAB PO SCH (21:00)
[2018-06-19 06:34] LABS: Calcium 8.8 mg/dL (8.6-10.3); Potassium 4.4 mmol/L (3.5-5.0)
[2018-06-19 06:40] LABS: EGFR African American 105.8 (>60); EGFR Non-African American 87.4 (>60)
--- NOTE | 2018-06-19 08:28 | EEG ---
ELECTROENCEPHALOGRAPHY: DATE OF STUDY: 06/18/18 - ROOM #445 CLINICAL PROBLEM: Susan Wallis is a 38-year-old female admitted to [address] [place] [address] on 03/25 after having a seizure. The patient had taken herself off trazodone as well as Ativan. Lamictal dosage had been lowered from 400 to 300 mg. Supplemental Manager report indicates that the patient has presented to [facility] emergency room 5 times in the past 5 days due to inability to sleep. EEG was requested to evaluate seizure versus withdrawal complications. The patient's mother witnessed a seizure-like episode, which consisted of the patient's head moving initially and then jerking movements of the extremities. The patient was awake during this episode and stated she was "seeing things." No loss of bowel and bladder control was noted or tongue biting. The patient does not recall the episode, and upon waking this morning she did not know where she was and what caused her to be in the hospital. The patient has slept 6 hours in total in the last week. The patient just returned from [place] for a semester. There is no history of head trauma. REPORT: This is a 16-channel EEG. In the beginning of the record, there was a posterior dominant 10 Hz alpha rhythm, which was symmetric and attenuated with eye opening. As the record continued, there was intermittent movements associated with movement artifact. Before and after the movement artifact, there was no change in the background rhythm. The background rhythm remains symmetric through the recording. Toward the end of the recording, there was some fragmentation of the alpha rhythm which may be seen in drowsiness. There was no evidence of sleep. Throughout the record, there was no significant asymmetry of the background rhythm. There was no evidence of sharp or spike-wave activity. CLINICAL IMPRESSION: This was a normal awake and drowsy EEG. There was no evidence of epileptiform activity. [id number]/[facility] #: [id number] [facility]
--- NOTE | 2018-06-19 11:07 | CONSULT ---
Identification - Patient Identification Reason for Psychiatric Consultation: Incapacitating Symptoms -: Patient is a 38 year old, F admitted on 06/17/18. - MHU Identification Employment Status: Student Hx Psychiatric Hospitalization: Yes History - Objective HPI: Susan is seen this morning for follow up. She appears well rested and is happy to report that she got over 9 hours of sleep here in the hospital since our meeting yesterday. She continues to endorse euthymic mood and absence of thoughts of self-harm. She is tolerating the introduction of lurasidone therapy without any untoward effects and is willing to continue this. She is similarly willing to follow up at the [facility] clinic after discharge and have them render not only psychotherapy but also take over psychopharmacologic management. Yesterday I spoke with her psychiatrist in [place], [place], Dr. Indra Rowley, who was in agreement that long distance treatment is suboptimal and he was supportive of the patient having her care taken over by the [facility]. I also discussed the case with Hospitalist Janis Fuller. Exam Appearance: Well Developed/Nourished Hygiene: Normal Grooming: Well Kept Psychomotor Activities: Normal Exhibits Abnormal Movement: No Attitude and Relatedness: Cooperative Eye Contact: Good - Speech Quality: Unpressured Latencies: Normal Quantity: Appropriate Patient's Decription of Mood: "Good" Observed Affect: Good Affect Consistent with: Euthymia Patient's Thought Process: Coherent Thought Content: No Passive Wish, No Suicidal Planning, No Homicidal Ideation, No Paranoid Ideation Experiencing Hallucinations: No, Sensorium is Clear Type of Hallucinations: Visual: No, Auditory: No, Command: No Level of Consciousness: Alert Orientation: Yes Intact, Yes Orientated to Time, Yes Orientated to Place, Yes Orientated to Person Impulse Control: Intact Insight and Judgement: Good Impression - Impression Clinical Impression: 38 y.o. 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 Inpatient DSM-V Dx: F13.10 Merits Inpatient Hospitalization: No BSU: Problem List - Patient Problems (1) Sedative, hypnotic or anxiolytic abuse Current Visit: Yes Status: Acute Code(s): F13.10 - SEDATIVE, HYPNOTIC OR ANXIOLYTIC ABUSE, UNCOMPLICATED SNOMED Code(s): 14000911 Plan - Treatment Plan Treatment Plan: The patient meets criteria for sedative/hypnotic use disorder as well as bipolar disorder. She appears to have improved significantly and she is psychiatrically cleared for discharge. We recommend continued treatment with lamotrigine 400mg PO qhs and lurasidone 20mg PO qhs, as well as prn zolpidem on a temporary basis. We have ordered social work consultation in order to facilitate follow up at the [facility] at [facility]. We recommend the patient allow them to render both psychotherapy and med management services as exclusive providers for the duration of her continued residence here in [place]. The patient is aware of this recommendation, as are her parents and current psychiatrist, Dr. Rowley. They are in agreement. Psychiatry is signing off the case. Thank you for the consult. Continued Medication Management: Different Medication Medications: Current Medications Acetaminophen (Tylenol Tab*) 650 mg PO Q6H PRN PRN Reason: FEVER/PAIN Last Admin: 06/18/18 13:02 Dose: 650 mg Hydroxyzine HCl (Atarax Tab*) 25 mg PO Q6H PRN PRN Reason: ANXIETY Last Admin: 06/18/18 13:02 Dose: 25 mg Ibuprofen (Motrin Tab*) 400 mg PO Q6H PRN PRN Reason: muskuloskeletal pain Lamotrigine (Lamictal Tab(*)) 400 mg PO QPM JOSSELYN Last Admin: 06/18/18 17:06 Dose: 400 mg Lurasidone HCl (Latuda) 20 mg PO BEDTIME JOSSELYN Last Admin: 06/18/18 21:23 Dose: 20 mg Zolpidem Tartrate (Ambien Tab*) 10 mg PO BEDTIME PRN PRN Reason: INSOMNIA Last Admin: 06/18/18 21:23 Dose: 10 mg - Discharge Plan Discharge Plan: Outpatient Follow Up Outpatient Program: Counseling/Psych Services at [employer]
[2018-06-19 13:09] VITALS: BP 124/70
--- NOTE | 2018-06-19 13:29 | DS ---
CC: Dr. Ever Salinas; [facility] * DISCHARGE SUMMARY: DATE OF ADMISSION: 06/17/18 DATE OF DISCHARGE: 06/19/18 MY ATTENDING FOR TODAY: Amari Walton MD * (DICTATED BY SIS LIANG NP) HOSPITAL COURSE: Please refer to admission H and P from 06/17/18, but in short , Ms. Wallis is a 38-year-old female who is a student at [employer] who presented on multiple occasions to the emergency department with complaints of insomnia, racing thoughts, and just not feeling right. The patient also noted some body aches and musculoskeletal pains. The patient had some acute confusion also that was noted by her family that she possibly had a seizure. The patient had some violent shaking and was not acting right, not acting like herself. She was brought back to the emergency department again. She was admitted to rule out seizure. The patient remained confused. She had a CAT scan of the head, which showed no acute findings. We consulted Psychiatry, Dr. Salinas, as the patient does have history of mood disorder. She also is on chronic benzodiazepines as well as Ambien and it was thought that some of her confusion may be secondary to polypharmacy. She was seen by Dr. Salinas who evaluated the patient and recommended some medication management. Please refer to Dr. Salinas's note for details. However, in short, we highly recommended the patient just not take benzos any more, also reducing her usage of Ativan and eventually finding an alternative for her symptoms of insomnia. It was noted that the patient had been travelling and had an extreme case of jet lag and had approximately 6 to 7 days of no sleep, which again could have contributed to her acute confusion and some of her physical symptoms. Her CPK was mildly elevated. She had no trauma. EEG was negative for any seizure disorder. The elevated CPK was likely secondary to lack of sleep. The patient was placed on some new medications. She received hydroxyzine q.6 hours for anxiety, also Latuda in the evening as per Psychiatry and we continued her Ambien at 10 mg only. It is significant to note that the patient stated she was taking 2 or 3 Ambien at a time trying to get herself to sleep with no change in her behavior other than increasing her confusion. The patient was counseled extensively on taking medications properly. She was referred to [facility] at [employer] for further medication management. Also of note, she does have a psychiatrist down in [place], which is where the patient is initially from. We highly recommend that the patient have local care; it would not be in her best interest to be utilizing the psychiatrist across the country when the patient does live here in [place] for school. The patient was readied for discharge, cleared by Psychiatry, on 06/19/18. She was seen by Social Work who set up her appointment with [facility]. The patient is agreeable to her discharge plan of care. The patient did have electrolyte disturbances. As well at admission, she had low sodium, low potassium, low chloride, and a low CO2, which had all been repleted and normalized. DISCHARGE DIAGNOSES: 1. Mood disorder. 2. Insomnia with acute confusion. 3. Elevated CPK. 4. Musculoskeletal and chest wall pain, now resolved. DISCHARGE MEDICATIONS: Include: 1. Ibuprofen 400 mg p.o. q.6 hours as needed for muscle pain. 2. Lamotrigine 400 mg p.o. in the evenings, this is a change. 3. Hydroxyzine 25 mg p.o. q.6 hours as needed, this is new. 4. Zolpidem 10 mg p.o. at bedtime, max dose 1 tablet. 5. Lurasidone 20 mg p.o. at bedtime. The patient is still taking Ativan, we will defer to the clinician at [facility] to consider whether keeping her on this medication is in her best interest. REVIEW OF SYSTEMS ON THE DAY OF DISCHARGE: The patient denies any fever, fatigue, or chills. No dizziness. No hallucinations. No suicidal thoughts or actions. No chest pain. No shortness of breath. Muscle pain has resolved. No arthralgias or myalgias and no further constitutional complaints. PHYSICAL EXAM: Reveals a young woman of her stated age, in no acute distress. Vital signs - blood pressure 125/70, heart rate 88, respiratory rate 18, O2 saturation 100% on room air with a temperature of 97.6. HEENT: The patient is atraumatic, normocephalic. PERRLA with nonicteric sclerae. Oral mucosa is moist. Tongue is midline. Neck is supple, nontender. No JVD noted. No carotid bruits auscultated. Cardiovascular: S1, S2 present. No murmurs, gallops , or rubs noted. Rate and rhythm are currently regular. Lungs are clear bilaterally to auscultation with no adventitious breath sounds. Abdomen is soft , nontender, nondistended. Positive bowel sounds in all 4 quadrants. No organomegaly noted. was deferred. Musculoskeletal: There is no clubbing, no cyanosis, no edema. She has +2 distal pulses palpable. Full range of motion. Gross motor and sensation are intact. She is ambulatory without assistance. Neurologic: Grossly intact with no focal deficits. Psychiatric: She is currently cooperative and appropriate and again states no harm to self or others. LABORATORY DATA: WBCs 10.0, RBCs 4.50, hemoglobin 12.5, hematocrit 39, platelets 302. Sodium 135, potassium 4.4, chloride 106, BUN 9, creatinine 0.75 , GFR 87.4, glucose 100. Calcium 8.8. CPK was 712 at admission, 264 today. Troponins are negative at 0.00 x3. Urinalysis shows no acute infective process. Urine toxicology does not show any illicit drug use. DISPOSITION: The patient would be discharged to home. Her parents are in from [place]. She will be discharged to their care. I recommended to the patient that she have her parents stay with her for the next week to ensure that being on her new medication, she has no side effects, and that she continues to follow up with [facility]. DIET: Regular diet as tolerated. ACTIVITY: Progress as tolerated. FOLLOWUPS: The patient was instructed to follow up with clinicians at [facility]. The patient may also see [facility] for primary care, although primarily her needs at this point are from Behavioral Services. The patient was discharged to home in stable condition. All questions were answered. Medications were sent to [facility] per the patient's request. TIME SPENT: Thirty five minutes interfacing with the patient and coordinating plan of care with Social Work and Dr. Salinas. SIS LIANG, JOHANNE [id number]/[facility] #: [id number] SERGE
[2018-06-19] MEDS ORDERED: Zolpidem TAB* 10 MG PO PRN (15:43)
[2018-06-19] MEDS ORDERED: hydrOXYzine HCL TAB* 25 MG PO PRN (15:43)
[2018-06-19] MEDS ORDERED: Lurasidone(*) 20 MG TAB PO SCH (20:00)
[2018-06-20] MEDS ORDERED: lamoTRIgine TAB(*) 100 MG PO SCH (09:00)
== END 2018-06-19 13:00 | disposition home or self-care (01) ==
LOC: ED 20:11 → MEDTELE 22:55
PROVIDERS: ADMIT Internal Medicine; ATTEND Internal Medicine
DX: F39 Unspecified mood [affective] disorder (principal); G47.00 Insomnia, unspecified; R41.0 Disorientation, unspecified; R74.8 Abnormal levels of other serum enzymes; R07.89 Other chest pain; F13.10 Sedative, hypnotic or anxiolytic abuse, uncomplicated
CPT/HCPCS: 36415; 70450; 80048; 80053; 80307; 80320; 81003; 82550; 82553; 84484; 84702; 85025; 93005; 95816; 96360; 99283; A9270-GY; G0378; G0480

== ENCOUNTER 2018-06-24 10:19 | Emergency (ER) | payer OTHER ==
--- NOTE | 2018-06-24 10:50 | ED ---
Complex/Multi-Sys Presentation - HPI Summary HPI Summary: Pt is a 38 y/o female who presents to the ED c/o insomnia. She has been to the ER frequently within the past 2 weeks for insomnia and anxiety. Pt was discharged from [facility] 5 days ago and had chest spasms while admitted. She was on seizure watch, but it was believed the spasms were a reaction to her lack of sleep. Pt was told to return to [facility] with continuing insomnia, and requests admission. This morning she again felt chest tightness accompanied by SOB, palpitations, spasms, and fogginess. Pt recently was taken off of Ambien, Trazodone, and Ativan. She notes that she has had panic attacks in the past, but never accompanied by CP. She denies any drug or alcohol use. PMHx insomnia, mood disorder, anxiety, OCD. LNMP 3 weeks ago. - History Of Current Complaint Time Seen by Provider: 06/24/18 10:29 Hx Obtained From: Patient Onset/Duration: Sudden Onset, Still Present Timing: Intermittent, Lasting: Location: Pain At: - chest Character: Pressure Aggravating Factor(s): Nothing Alleviating Factor(s): Nothing Associated Signs And Symptoms: Positive: SOB, Chest Pain Related History: Recent Hospitalization - insomnia - Allergies/Home Medications Allergies/Adverse Reactions: Allergies Allergy/AdvReac Type Severity Reaction Status Date / Time No Known Allergies Allergy Verified 06/17/18 20:20 PMH/Surg Hx/FS Hx/Imm Hx Endocrine/Hematology History: Denies: Hx Diabetes Cardiovascular History: Denies: Hx Hypertension Sensory History: Reports: Hx Contacts or Glasses Denies: Hx Legally Blind, Hx Deafness, Hx Hearing Aid Opthamlomology History: Reports: Hx Contacts or Glasses Denies: Hx Legally Blind Psychiatric History: Reports: Hx Anxiety, Hx Depression, Other Psychiatric Issues/Disorders - insomnia, mood disorder, OCD Denies: Hx Eating Disorder, Hx of Violent Episodes Against Others - Surgical History Surgery Procedure, Year, and Place: none - Immunization History Date of Tetanus Vaccine: unk Date of Influenza Vaccine: none Infectious Disease History: No Infectious Disease History: Denies: Traveled Outside the US in Last 30 Days - Family History Known Family History: Positive: Cardiac Disease Negative: Hypertension, Diabetes, Blood Disorder - Social History Alcohol Use: Rare Hx Substance Use: No Substance Use Type: Reports: None Hx Tobacco Use: Yes Smoking Status (MU): Former Smoker Review of Systems Positive: Other - insomnia, fogginess Positive: Palpitations, Chest Pain - tightness Positive: Shortness Of Breath Positive: Other - spasms Positive: Anxious All Other Systems Reviewed And Are Negative: Yes Physical Exam - Summary Physical Exam Summary: Appearance: Well appearing, no pain distress Skin: warm, dry, reflects adequate perfusion Head/face: normal Eyes: EOMI, DANY ENT: mucous membranes moist Neck: supple, non-tender Respiratory: CTA, breath sounds present Cardiovascular: RRR, pulses symmetrical Abdomen: non-tender, soft Bowel Sounds: present Musculoskeletal: normal, strength/ROM intact Neuro: normal, sensory motor intact, A&Ox3 Psych: mild anxiety, no SI Triage Information Reviewed: Yes Vital Signs On Initial Exam: Initial Vitals Temp Pulse Resp BP Pulse Ox 98.6 F 98 17 137/90 97 06/24/18 10:27 06/24/18 10:27 06/24/18 10:27 06/24/18 10:27 06/24/18 10:27 Vital Signs Reviewed: Yes Diagnostics - Vital Signs Vital Signs Temp Pulse Resp BP Pulse Ox 06/24/18 10:27 98.6 F 98 17 137/90 97 - Laboratory Result Diagrams: 06/24/18 11:32 06/24/18 11:32 Lab Statement: Any lab studies that have been ordered have been reviewed, and results considered in the medical decision making process. - EKG 11:15 Cardiac Rate: NL - 97 bpm EKG Rhythm: Sinus Rhythm ST Segment: Normal Summary of EKG Findings: Nl axis, nl intervals Complex Multi-Symp Course/Dx Course Of Treatment: Nurse's notes reviewed. Patient with history of anxiety now with having a panic attack-like episodes at night. She is improved now. Her laboratories are all normal including EKG. She received mental health evaluation and following the crisis evaluation she was cleared for discharge with outpatient follow-up at [facility] by the psychiatrist. - Diagnoses Differential Diagnoses/HQI/PQRI: Metabolic Abnormality, Other - Cardiac cause, anxiety/panic attack Provider Diagnoses: Anxiety, Panic attacks - Physician Notifications Discussed Care Of Patient With: Ever Salinas Time Discussed With Above Provider: 11:34 Instructed by Provider To: Other - Dr. Salinas believes the pt can be discharged with a dx of anxiety. Pt was given three days worth of Ambien last time at [facility] , so he believes that she is drug seeking. She is to follow up with [facility]. Discharge - Sign-Out/Discharge Documenting (check all that apply): Patient Departure - Discharge Patient Received Moderate/Deep Sedation with Procedure: No - Discharge Plan Condition: Improved Disposition: HOME Patient Education Materials: Mood Disorders (ED), Panic Attack (ED) Referrals: No Primary Care Phys,NOPCP [Primary Care Provider] - - Billing Disposition and Condition Condition: IMPROVED Disposition: Home - Attestation Statements Document Initiated by Scribe: Yes Documenting Scribe: Chacha Radford Provider For Whom Abbyibe is Documenting (Include Credential): Isiah Palacio MD Scribe Attestation: Chacha Torres scribed for Isiah Palacio MD on 06/24/18 at 1528. Scribe Documentation Reviewed: Yes Provider Attestation: The documentation as recorded by the Chacha cary accurately reflects the service I personally performed and the decisions made by , Isiah Palacio MD Status of Scribe Document: Viewed
[2018-06-24 11:42] LABS: ABS Basophils 0 10^3/ul (0-0.2); ABS Eosinophils 0 10^3/ul (0-0.6); ABS Lymphocytes 1.4 10^3/ul (1.0-4.8); ABS Monocytes 0.5 10^3/ul (0-0.8); ABS Neutrophils 4.8 10^3/ul (1.5-7.7); ABS Nucleated RBC 0 10^3/ul; Eosinophil % 0.7 %; Hematocrit 37 % (35-47); Hemoglobin 12.3 g/dl (12.0-16.0); Lymphocyte % 20.3 %; Mean Corpuscular HGB Conc 33 g/dl (31-36); Mean Corpuscular Hemoglobin 28 pg (27-31); Mean Corpuscular Volume 85 fL (80-97); Mean Platelet Volume 6.7 fL (7.4-10.4); Nucleated Red Blood Cells % 0; Platelet Count 359 10^3/ul (150-450); Red Blood Count 4.41 10^6/ul (4.00-5.40); Red Cell Distribution Width 14 % (10.5-15); White Blood Count 6.7 10^3/ul (3.5-10.8)
[2018-06-24 12:00] LABS: ALT 11 U/L (7-52); AST 15 U/L (13-39); Albumin 4.6 g/dL (3.2-5.2); Albumin/Globulin Ratio 1.5 (1-3); Alkaline Phosphatase 62 U/L (34-104); Anion Gap 9 mmol/L (2-11); BUN/Creatinine Ratio 9.6 (8-20); Blood Urea Nitrogen 7 mg/dL (6-24); CO2 Carbon Dioxide 23 mmol/L (22-32); Calcium 9.5 mg/dL (8.6-10.3); Chloride 102 mmol/L (101-111); EGFR African American 109.2 (>60); EGFR Non-African American 90.2 (>60); Globulin 3.1 g/dL (2-4); Glucose 107 mg/dL (70-100); Potassium 3.5 mmol/L (3.5-5.0); Sodium 134 mmol/L (135-145); Total Protein 7.7 g/dL (6.4-8.9)
[2018-06-24 12:16] LABS: Alcohol < 10 mg/dL (<10)
[2018-06-24 12:39] VITALS: BP 131/81
== END 2018-06-24 12:38 | disposition home or self-care (01) ==
LOC: ED 10:19
DX: F41.0 Panic disorder [episodic paroxysmal anxiety] (principal); R06.02 Shortness of breath; R07.89 Other chest pain; G47.00 Insomnia, unspecified; Z87.891 Personal history of nicotine dependence
CPT/HCPCS: 36415; 80053; 80175; 80320; 84484; 85025; 93005; 99284; G0480

== ENCOUNTER 2018-06-24 15:31 | Inpatient (IN) | payer OTHER ==
--- NOTE | 2018-06-24 15:48 | ED ---
Psychiatric Complaint - HPI Summary HPI Summary: Pt is a 38 y/o female who presents to the ED c/o self-harm ideation. Pt has been to the ER frequently within the past 2 weeks for her insomnia and anxiety. She was here earlier presenting with insomnia, anxiety, chest tightness, SOB, palpitations, spasms, and fogginess. Pt was discharged as per Dr. Salinas with a diagnosis of anxiety. He felt that she was drug seeking, since she ran out of her Ambien. As per mother, pt was only talking about her physical symptoms earlier and ignored her psychiatric symptoms. Lately she has been having bad dreams and bad thoughts. When pt got home she told her mother I wonder what it would be like to split my head open. Pt states that she feels like her OCD is acting up, and she doesnt want to be alone with her self-harm ideations. She took a Hydroxyzine at 12:00. She denies any drug or alcohol use. PMHx insomnia, mood disorder, anxiety, OCD. - History Of Current Complaint Chief Complaint: EDMentalHealth Time Seen by Provider: 06/24/18 15:39 Hx Obtained From: Patient, Family/Refrigeration Lead - Mother Hx Last Menstrual Period: just finished, on OCPs, due to start new pack of pills today, 07/08/17 Onset/Duration: Gradual Onset, Still Present Timing: Constant Character: Anxious Aggravating Factor(s): Other - Insomnia Alleviating Factor(s): Nothing Associated Signs And Symptoms: Positive: Sleep Disturbance Related History: Positive For: Prior Psychiatric Issues - Allergies/Home Medications Allergies/Adverse Reactions: Allergies Allergy/AdvReac Type Severity Reaction Status Date / Time No Known Allergies Allergy Verified 06/17/18 20:20 PMH/Surg Hx/FS Hx/Imm Hx Endocrine/Hematology History: Denies: Hx Diabetes Cardiovascular History: Denies: Hx Hypertension Sensory History: Reports: Hx Contacts or Glasses Denies: Hx Legally Blind, Hx Deafness, Hx Hearing Aid Opthamlomology History: Reports: Hx Contacts or Glasses Denies: Hx Legally Blind Psychiatric History: Reports: Hx Anxiety, Hx Depression, Other Psychiatric Issues/Disorders - insomnia, mood disorder, OCD Denies: Hx Eating Disorder, Hx of Violent Episodes Against Others - Surgical History Surgery Procedure, Year, and Place: none - Immunization History Date of Tetanus Vaccine: unk Date of Influenza Vaccine: none Infectious Disease History: No Infectious Disease History: Denies: Traveled Outside the US in Last 30 Days - Family History Known Family History: Positive: Cardiac Disease Negative: Hypertension, Diabetes, Blood Disorder - Social History Alcohol Use: Rare Hx Substance Use: No Substance Use Type: Reports: None Hx Tobacco Use: Yes Smoking Status (MU): Former Smoker Review of Systems Positive: Other - Insomnia Positive: Anxious, Other - self-harm ideation, "OCD acting up" All Other Systems Reviewed And Are Negative: Yes Physical Exam - Summary Physical Exam Summary: Appearance: Well appearing, no pain distress Skin: warm, dry, reflects adequate perfusion Head/face: normal Eyes: EOMI, DANY ENT: mucous membranes moist Neck: supple, non-tender Respiratory: CTA, breath sounds present Cardiovascular: RRR, pulses symmetrical Abdomen: non-tender, soft Bowel Sounds: present Musculoskeletal: normal, strength/ROM intact Neuro: normal, sensory motor intact, A&Ox3 Psych: mildly anxious appearing Triage Information Reviewed: Yes Vital Signs On Initial Exam: Initial Vitals Temp Pulse Resp BP Pulse Ox 98 F 97 17 134/88 100 06/24/18 15:33 06/24/18 15:33 06/24/18 15:33 06/24/18 15:33 06/24/18 15:33 Vital Signs Reviewed: Yes Diagnostics - Vital Signs Vital Signs Temp Pulse Resp BP Pulse Ox 06/24/18 15:33 98 F 97 17 134/88 100 - Laboratory Lab Statement: Any lab studies that have been ordered have been reviewed, and results considered in the medical decision making process. Re-Evaluation - Re-Evaluation First Eval Re-Evaluation Time: 16:00 Change: Unchanged Comment: Pt is medically cleared for a MHE. Course/Dx - Course Course Of Treatment: Nurse's notes reviewed. Patient had full laboratories this morning. She was reevaluated by mental health and I spoke with the psychiatrist. He has agreed to admit her on involuntary 9.39 status. She did have a bout of anxiety and sweating that was treated with oral Ativan. They've been trying to taper or discontinue her use of benzodiazepines. - Differential Dx/Clinical Impression Differential Diagnosis/HQI/PQRI: Positive: Acute Psychosis, Anxiety, Bipolar Disorder, Depression, Homicidal Ideation, Homicidal Gesture, Suicidal Ideation, Suicidal Gesture, Other - Benzodiazepine withdrawal Provider Diagnosis: Mood disorder, Insomnia, Anxiety - Physician Notifications Discussed Care Of Patient With: Ever Salinas Time Discussed With Above Provider: 16:45 Instructed by Provider To: Admit As Inpatient Discharge - Sign-Out/Discharge Documenting (check all that apply): Patient Departure - Admit Patient Received Moderate/Deep Sedation with Procedure: No - Discharge Plan Condition: Fair Disposition: [facility]IATRIC [facility]AC[facility] Referrals: No Primary Care Phys,NOPCP [Primary Care Provider] - - Billing Disposition and Condition Condition: FAIR Disposition: Psychiatric Facility [facility] - Attestation Statements Document Initiated by Scribe: Yes Documenting Scribe: Chacha Radford Provider For Whom Scribe is Documenting (Include Credential): Isiah Palacio MD Scribe Attestation: Chacha Torres scribed for Isiah Palacio MD on 06/24/18 at 1837. Scribe Documentation Reviewed: Yes Provider Attestation: The documentation as recorded by the swathiibChacha lopez accurately reflects the service I personally performed and the decisions made by Isiah johnson MD Status of Scribe Document: Viewed
[2018-06-24] MEDS ORDERED: Al Hydrox/Mg Hydrox/Simet LIQ* 30 ML UDC PO PRN (16:57)
[2018-06-24] MEDS ORDERED: hydrOXYzine HCL TAB* 25 MG PO PRN (16:58)
[2018-06-24] MEDS ORDERED: LORazepam TAB(*) 1 MG PO ONE (17:31)
[2018-06-24] MEDS ORDERED: Lurasidone(*) 20 MG TAB PO SCH (20:00)
[2018-06-24] MEDS ORDERED: lamoTRIgine TAB(*) 100 MG PO SCH (21:00)
[2018-06-24] MEDS: Acetaminophen TAB* 325 MG PO PRN (22:37)
[2018-06-24] MEDS: chlorproMAZINE TAB* 50 MG PO PRN (22:37)
[2018-06-25 07:05] LABS: HDL Cholesterol 61.4 mg/dL
[2018-06-25] MEDS: Acetaminophen TAB* 325 MG PO PRN ×2 (10:27→22:06)
--- NOTE | 2018-06-25 10:45 | PN ---
BSU: Group Therapy Note - Service Type Service Type: [id number] Group Psychotherapy - Cognitive Behavioral Group Therapy ( CBT):Patient was attentive and participatory in CBT programming this morning, and remained in good behavioral control. Patient expressed positive insights regarding relevant treatment interventions and goals.
--- NOTE | 2018-06-25 13:38 | HP ---
PSYCHIATRIC HISTORY AND PHYSICAL: DATE OF ADMISSION: 06/24/18 JUSTIFICATION FOR ADMISSION: The patient is in need of 24-hour supervision and care secondary overwh elming thoughts to harm herself. CHIEF COMPLAINT: "I just haven't been right. I asked my parents to bring me back to the hospital." HISTORY OF PRESENT ILLNESS: The patient is a 38-year-old white and Edgar anderson female, [employer] law student, with a history of recently diagnosed bipolar disorder, anxiety, and OCD who has made seven recent trips to our emergency room in the span of the past week and a half wit h complaints of extreme insomnia and anxiety. The patient was actually admitted to the medical [facility] a week ago for what she described as a seizure. At that time, she was worked up with an MRI and a n EEG which were both within normal limits. This clinician consulted on the patient on 06/18/18 and felt that she met criteria for bipolar disorder. I started a trial of lurasidone which was added to her lamotrigine and we recommended that she follow up with [facility]. The patient 's account is that after her discharge on 06/19/18, she followed up 2 days later at [employer] with psyc hiatrist, Dr. Carlos. At that time, her lamotrigine was kept at 400 mg daily, but her lurasidone was increased from 20 to 40 mg. Given the patient's recent misuse of lorazepam and Ambien, Dr. Mike hughes did not continue those medicines. Over the weekend, the patient states that she struggled to sl eep, had a great deal of anxiety as well as restlessness, inability to focus, inability to work at [employer], feelings of being unsafe. She states that she has OCD and that her OCD takes the form of obses sive thoughts of hurting other people or banging her head against a wall. She had come to the ED sameer juan on the morning of 06/24/18, but she was medically cleared and discharged home to follow up [facility] at [employer]. The patient then had her parents, who were visiting from [place], bring her directly back to the emergency room, where she made statements of self-harm and it was decided to hospitalize her on a 9.39 involuntary basis on our Behavioral Science Unit. This morning, Susan states that she slept a little bit better last night after receiving p.r.n. Thorazine. She is agreeable to add this to her medication regimen in lieu of controlled substances to see if this will assist in her sleepin g. PAST PSYCHIATRIC HISTORY: The patient has previous diagnoses of obsessive compulsive disorder; anxie ty disorder, NOS; and insomnia. We diagnosed her with bipolar disorder during her medical hospitaliz ation here last week. She does have a previous experience of antidepressant emergent yoseph which was caused by escitalopram. Other past medication trials have included Seroquel which caused daytime se dation, Pristiq and Prozac which were ineffective. Prior to her medical hospitalization, her psychia trist was Dr. Indra Rowley in [place], who had been her treating psychiatrist since 2012. Af ter a conversation with myself, he agreed to transfer care to the mental health service at [facility], where she had her intake on 06/21/18. The patient does have two prior psychiatric inlat the [facility] hospitalizations, the first in 2011 with anxiety and the second in 2012 with severe depression a nd passive suicidal ideation. Both of these hospitalizations were followed by extensive outpatient d ay treatment. In the past, the patient has received a course of CBT on an outpatient basis. In 2017 while living here in [place], she was treated for several months by a local nurse practitioner named, Eliana Cyr. However, Ms. Cyr did not agree with continuing controlled substances and the patient stopped going to see her. 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 Current ly, she smokes cannabis recreationally and on occasion to help her sleep. 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 She has no history of tobacco abuse. PAST MEDICAL HISTORY: Noncontributory. MEDICATIONS: Include: 1. Lamictal 500 mg p.o. q.16 hours. 2. Lurasidone 40 mg p.o. q.h.s. ALLERGIES: She is not allergic to any known medications. FAMILY HISTORY: Significant for anxiety in her mother's side of family and bipolar disorder in her f ather's side of the family including a paternal aunt with bipolar. SOCIAL HISTORY: The patient was born and raised in the [facility] to an intact family. Her parents are still together. She has a younger sister who is 33. The patient did her un dergraduate work at [employer], graduating in 2004. 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 In 2014, she was accepted and briefly attended [employer]; h erik, she left secondary to problems with anxiety. In 2015, she moved to [place], where she started law school at [employer]. She is doing adequately and is in her last semester; however, she has been m issing classes so far this semester. The patient was once in 2006 and later in 2008 . She has no children. Currently, she is single. She is neither sexually active nor has any histor y of sexually transmitted diseases. She lives alone. She self- identifies as Lutheran from the [facility] denomination. She has no history of significant legal problems. REVIEW OF SYSTEMS: Significant for occasional headache and chest pain. Other than this, she denies double vision, denies sore throat, cough, difficulty breathing. She denies abdominal pain, nausea, vo miting, diarrhea, or constipation. She denies difficulty ambulating, enlarged lymph nodes, fever, ra shes, or changes in weight. PHYSICAL EXAMINATION VITAL SIGNS: Blood pressure 115/75, heart rate 123, temperature 98.2 degrees Fahrenheit, oxygen sat urations are 98% on room air, and her breath rate is 16 breaths per minute. HEENT: Head is normocephalic, atraumatic. NECK: Supple. LUNGS: Chest is clear to auscultation bilaterally. CARDIAC: Exam reveals normal heart sounds. ABDOMEN: Soft and nontender. MUSCULOSKELETAL: Exam reveals a full range of motion in all 4 extremities with no sign of edema. NEUROLOGIC: She is grossly intact with no focal deficits. SKIN: Warm and dry. LABORATORY DATA: Complete blood count and complete metabolic profile are within normal limits. TSH is normal at 3.09. Beta hCG was negative. Urinalysis was negative. Urine drug screen negative for all substances tested including alcohol. MENTAL STATUS EXAM: The patient is a young female who is dressed in a pink hooded sweatsh irt and sweatpants. She is sitting up in the chair and making good eye contact. She is calm, miguel ative, easy to establish a rapport with, and she is pleasant to talk with. Speech has a normal rate, tone, and volume. Mood is appears to be anxious with a corresponding anxious affect. Thought proce ss is linear, goal directed. Thought content is significant for concerns of her difficulty sleeping. She is denying suicidal or homicidal ideations at this time, but did endorse intrusive OCD thoughts of self-harm in the emergency room. She denies auditory or visual hallucinations. Insight and judg ment are somewhat impaired given her misutilization of controlled substances as well as emergency otilio m treatment. Cognitively, she is awake and alert with what would appear to be high average intellect given her educational background. DIAGNOSES: As follow: Lund I: Sedative hypnotic use disorder; bipolar disorder, currently hypomanic ; obsessive compulsive disorder, by history. Lund II: Deferred. IMPRESSION: The patient is a 38-year-old white and female who i s a law student at [employer], who was just discharged from the medical service 1 week ago following sta bilization of her medications related to insomnia and anxiety. She now returns to the hospital for h er seventh ED visit in the last 10 days complaining of numerous symptoms including anxiety, insomnia, racing thoughts, and obsessive thoughts of self-harm including slamming her head against the wall. Her feeling was that if we were to discharge her, she would simply return to the emergency room. At this time, we have no collateral information from [facility]. PLAN: The patient is admitted to the adult behavioral health unit, where she is placed on q.15 minut e checks for her own safety. I will continue her medications as most recently prescribed by Dr. Khadijah caamcho at [facility]. These include Lamictal 400 mg q.p.m. and lurasidone 40 mg p.o. nightly. If the patient has breakthrough anxiety, we can use hydroxyzine, and for insomnia, we can use 50 mg of Thorazine. I do want to withhold any controlled substances at this time feeling that th e patient does have issues with abuse of sedatives and hypnotics. I have placed a call to Dr. Rocio camacho at [employer] and would like collaborate care with her, will also be communicating with the patient' s parents who continue to be visiting from [place]. [id number]/[facility] #: [id number]
[2018-06-25] MEDS: lamoTRIgine TAB(*) 100 MG PO SCH (16:13)
[2018-06-25] MEDS: Lurasidone(*) 40 MG TAB PO SCH (20:54)
[2018-06-25] MEDS: chlorproMAZINE TAB* 50 MG PO PRN (20:55)
[2018-06-25] MEDS: hydrOXYzine HCL TAB* 25 MG PO PRN (21:36)
[2018-06-26] MEDS: hydrOXYzine HCL TAB* 25 MG PO PRN ×2 (06:52→18:34)
[2018-06-26] MEDS: chlorproMAZINE TAB* 50 MG PO PRN (09:01)
--- NOTE | 2018-06-26 11:04 | PN ---
Subjective - Subjective Date of Service: 06/26/18 Service Type: 65557 Hosp care 15 min low complexity Subjective: Rodrigo slept well with a combination of prn hydroxyzine and chlorpromazine last night, seven hours per staff. She remains somewhat anxious and was taking another nap prior to our meeting this morning. I spoke with psychiatrist, Dr. Wright at [facility], who confirmed that Rodrigo had an intake with psychiatrist Brandy Funez last Sunday (06/21). She has a follow up with Dr. Funez this Sunday (06/28) at 11:30. Rodrigo continues to deny SI, HI or thoughts of self-harm. Objective - Appearance Appearance: Well Developed/Nourished Dysmorphic Features: No Hygiene: Normal Grooming: Well Kept - Behavior Psychomotor Activities: Normal Exhibits Abnormal Movement: No - Attitude and Relatedness Attitude and Relatedness: Cooperative Eye Contact: Good - Speech Quality: Unpressured Latencies: Normal Quantity: Appropriate - Mood Patient's Decription of Mood: "Okay" - Affect Observed Affect: Fair Affect Consistent with: Euthymia - Thought Process Patient's Thought Process: Coherent Thought Content: No Passive Wish, No Suicidal Planning, No Homicidal Ideation, No Paranoid Ideation - Sensorium Experiencing Hallucinations: No, Sensorium is Clear Type of Hallucinations: Visual: No, Auditory: No, Command: No - Level of Consciousness Level of Consciousness: Alert Orientation: Yes Intact, Yes Orientated to Time, Yes Orientated to Place, Yes Orientated to Person - Impulse Control Impulse Control: Tenuous - Insight and Judgement Insight and Judgement: Fair - Group Participation Particating in Group Activities: Yes - Medication Management Medication Management Adherence: Yes Assessment - Assessment Merits Inpatient Hospitalization: For Immediate Safety, For Stabilization Inpatient DSM-V Dx: F13.10 Clinical Impression: 38 y.o. 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 BSU: Problem List - Patient Problems (1) Sedative, hypnotic or anxiolytic abuse Current Visit: No Status: Acute Priority: Medium Code(s): F13.10 - SEDATIVE, HYPNOTIC OR ANXIOLYTIC ABUSE, UNCOMPLICATED SNOMED Code(s): 31468478 Plan - Plan Treatment Plan: Name: RODRIGO HUNG Birthdate: 1980 [id number] The patient has been continued on lurasidone 40mg PO qhs and lamotrigine 400mg PO qpm. We have added prns of hydroxyzine 50mg for anxiety and chlorpromazine 50mg for insomnia. Continue to treat and target discharge for this June 28 with f/u at [facility]. Continued Medication Management: Different Medication Medications: Current Medications Acetaminophen (Tylenol Tab*) 650 mg PO Q4H PRN PRN Reason: for pain; or Temp >101 F Last Admin: 06/25/18 22:06 Dose: 650 mg Al Hydrox/Mg Hydrox/Simethicone (Maalox Plus*) 30 ml PO Q4H PRN PRN Reason: INDIGESTION Chlorpromazine HCl (Thorazine Tab*) 100 mg PO BEDTIME PRN PRN Reason: insomnia Hydroxyzine HCl (Atarax Tab*) 50 mg PO Q6H PRN PRN Reason: ANXIETY Last Admin: 06/26/18 06:52 Dose: 50 mg Lamotrigine (Lamictal Tab(*)) 400 mg PO 1600 [facility] Last Admin: 06/25/18 16:13 Dose: 400 mg Lurasidone HCl (Latuda) 40 mg PO 2000 [facility] Last Admin: 06/25/18 20:54 Dose: 40 mg - Discharge Plan Discharge Plan: Inpatient Hospitalization Lab Results - Lab Results Lab Results: 06/25/18 06/25/18 06:43 06:43 Hemoglobin A1c 5.6 Triglycerides 47 Cholesterol 152 LDL Cholesterol 81 HDL Cholesterol 61.4
--- NOTE | 2018-06-26 11:45 | PN ---
BSU: Group Therapy Note - Service Type Service Type: [id number] Group Psychotherapy - Cognitive Behavioral Group Therapy ( CBT):Patient was attentive and participatory in CBT programming this morning, and remained in good behavioral control. Patient expressed positive insights regarding relevant treatment interventions and goals.
--- NOTE | 2018-06-26 16:18 | PN ---
BSU: Group Therapy Note - Service Type Service Type: [id number] Group Psychotherapy - Medication Education Group: Patient was attentive and participatory in group, and remained in good behavioral control. Patient expressed positive insights regarding relevant treatment interventions. Patient stated understanding of material discussed and had appropriate questions.
[2018-06-26] MEDS: lamoTRIgine TAB(*) 100 MG PO SCH (16:55)
[2018-06-26] MEDS: Lurasidone(*) 40 MG TAB PO SCH (20:59)
[2018-06-26] MEDS: chlorproMAZINE TAB* 100 MG PO PRN (21:35)
[2018-06-27] MEDS: CMCS:OMEGA-3 FATTY ACIDS (NF) 1,000 MG CAP PO SCH (09:43)
[2018-06-27] MEDS: Vitamin THERAPEUTIC TAB PO SCH (09:43)
[2018-06-27] MEDS: hydrOXYzine HCL TAB* 25 MG PO PRN ×2 (09:44→19:36)
--- NOTE | 2018-06-27 11:38 | PN ---
BSU: Group Therapy Note - Service Type Service Type: 48819 Group Psychotherapy - Cognitive Behavioral Group Therapy ( CBT):Patient was attentive and participatory in CBT programming this morning, and remained in good behavioral control. Patient expressed positive insights regarding relevant treatment interventions and goals.
--- NOTE | 2018-06-27 12:20 | PN ---
Subjective - Subjective Date of Service: 06/27/18 Service Type: 12640 Hosp care 15 min low complexity Subjective: Rodrigo slept 8 hours last night but woke up with anxiety and was actually requesting further Thorazine. She accepts at this point that she was misutilizing lorazepam and zolpidem and is committed to not take these anymore. With that being said, she seems to have a dependent personality streak, as evidenced by the frequent involvement of her parents in her affairs and her repeated trips to the emergency room, and is anxious about her planned discharge for tomorrow. "I got up this morning and I just didn't feel on- track. Maybe it's the fact that I'm supposed to leave in the morning. I don't feel ready." Rodrigo is reassured that what she really needs is the development of a therapeutic relationship with a mental health provider on a longitudinal basis, and that this is best achieved in the outpatient setting. She continues to deny SI, HI or thoughts of self-harm. She is adherent with groups and milieu activities. Objective - Appearance Appearance: Well Developed/Nourished Dysmorphic Features: No Hygiene: Normal Grooming: Well Kept - Behavior Psychomotor Activities: Normal Exhibits Abnormal Movement: No - Attitude and Relatedness Attitude and Relatedness: Cooperative Eye Contact: Good - Speech Quality: Unpressured Latencies: Normal Quantity: Appropriate - Mood Patient's Decription of Mood: "Good" - Affect Observed Affect: Good Affect Consistent with: Euthymia - Thought Process Patient's Thought Process: Coherent Thought Content: No Passive Wish, No Suicidal Planning, No Homicidal Ideation, No Paranoid Ideation - Sensorium Experiencing Hallucinations: No, Sensorium is Clear Type of Hallucinations: Visual: No, Auditory: No, Command: No - Level of Consciousness Level of Consciousness: Alert Orientation: Yes Intact, Yes Orientated to Time, Yes Orientated to Place, Yes Orientated to Person - Impulse Control Impulse Control: Tenuous - Insight and Judgement Insight and Judgement: Fair - Group Participation Particating in Group Activities: Yes - Medication Management Medication Management Adherence: Yes Assessment - Assessment Merits Inpatient Hospitalization: Consolidate Improvements, Pending Safe DC Plan Inpatient DSM-V Dx: F13.10 Clinical Impression: 38 y.o. 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 BSU: Problem List - Patient Problems (1) Sedative, hypnotic or anxiolytic abuse Current Visit: No Status: Acute Priority: Medium Code(s): F13.10 - SEDATIVE, HYPNOTIC OR ANXIOLYTIC ABUSE, UNCOMPLICATED SNOMED Code(s): 50421695 Plan - Plan Treatment Plan: Name: RODRIGO HUNG Birthdate: 1980 [id number] The patient has been continued on lurasidone 40mg PO qhs and lamotrigine 400mg PO qpm. We have added prns of hydroxyzine 50mg for anxiety and chlorpromazine 100mg for insomnia. Continue to treat and target discharge for tomorrow, Sunday , June 28 with immediate f/u at [facility]. Continued Medication Management: Different Medication Medications: Current Medications Acetaminophen (Tylenol Tab*) 650 mg PO Q4H PRN PRN Reason: for pain; or Temp >101 F Last Admin: 06/25/18 22:06 Dose: 650 mg Al Hydrox/Mg Hydrox/Simethicone (Maalox Plus*) 30 ml PO Q4H PRN PRN Reason: INDIGESTION Chlorpromazine HCl (Thorazine Tab*) 100 mg PO BEDTIME PRN PRN Reason: insomnia Last Admin: 06/26/18 21:35 Dose: 100 mg Fish Oil (Fish Oil (Nf)) 1,000 mg PO DAILY [facility] Last Admin: 06/27/18 09:43 Dose: 1,000 mg Hydroxyzine HCl (Atarax Tab*) 50 mg PO Q6H PRN PRN Reason: ANXIETY Last Admin: 06/27/18 09:44 Dose: 50 mg Lamotrigine (Lamictal Tab(*)) 400 mg PO 1600 [facility] Last Admin: 06/26/18 16:55 Dose: 400 mg Lurasidone HCl (Latuda) 40 mg PO 2000 [facility] Last Admin: 06/26/18 20:59 Dose: 40 mg Multivitamins (Theragran Tab*) 1 tab PO DAILY [facility] Last Admin: 06/27/18 09:43 Dose: 1 tab - Discharge Plan Discharge Plan: Outpatient Follow Up Outpatient Program: Counseling/Psych Services at [employer]
[2018-06-27] MEDS: lamoTRIgine TAB(*) 100 MG PO SCH (16:57)
[2018-06-27] MEDS: chlorproMAZINE TAB* 100 MG PO PRN (20:52)
[2018-06-27] MEDS: Lurasidone(*) 40 MG TAB PO SCH (20:52)
[2018-06-28] MEDS: hydrOXYzine HCL TAB* 25 MG PO PRN (09:03)
[2018-06-28] MEDS: Vitamin THERAPEUTIC TAB PO SCH (09:03)
[2018-06-28] MEDS: CMCS:OMEGA-3 FATTY ACIDS (NF) 1,000 MG CAP PO SCH (09:03)
[2018-06-28 09:46] VITALS: BP 133/75
--- NOTE | 2018-06-28 12:41 | DS ---
DISCHARGE SUMMARY: DATE OF ADMISSION: 06/24/18 DATE OF DISCHARGE: 06/28/18 DISCHARGE DIAGNOSES: As follows: [place] I: Sedative hypnotic use disorder; bipolar disorder, currentl y hypomanic; obsessive-compulsive disorder by history. [place] II: Depression personality traits. CONDITION AT THE TIME OF DISCHARGE: Stable. The patient is no longer endorsing thoughts of harming herself. She has denied suicidal or homicidal ideation throughout this hospitalization. She has bee n safe on all checks with no self- harming behaviors noted. The patient has been visited by her moth er and father who are in town from [place] and her mother, Leonela Wallis, is here to pick her up a nd take her back to [facility] [place] where she has an appointment this morning with the [facility]. The patient has done well here. She has been active in groups. She has been sleeping well, tolerating her medications without untoward side effects. She is agreeable with discharge as is her family. We had spoken with the providers at [facility] and we see no barriers to her successfully engaging in appropriate outpatient care for her issues. MENTAL STATUS EXAMINATION AT THE TIME OF DISCHARGE: The patient is a young, female who is dressed in a white sweatshirt with a jacket draped over her. She is sitting up in a chair next to he r mother, making good eye contact. She is calm, cooperative, easy to establish a rapport with, and s he is pleasant to talk with. Speech has a normal rate, tone, and volume. Mood appears to be euthymi c with a full affect. Thought process is linear, goal directed. 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 She is denying suicidal or homicidal ideations and denying any thoughts of harming herself. She denies auditory or visual hallucinations. Insight and judgment are fair given her willingness to fo llow up with outpatient treatment. Cognitively, she is awake and alert, with what would appear to be a high average intellect given her educational background. LABORATORY DATA: Comprehensive metabolic testing was performed on 06/25/18 revealing a hemoglobin A1 c of 5.6%, triglycerides 47, cholesterol 152, LDL cholesterol 81, HDL cholesterol 61.4. DISCHARGE INSTRUCTIONS TO THE PATIENT: As follows: Part A. Medications: 1. She is lurasidone 40 mg p.o. daily. 2. Lamotrigine 400 mg p.o. q.p.m. 3. She is on hydroxyzine 50 mg every 6 hours as needed for anxiety. 4. She is on Thorazine 100 mg p.o. q.h.s. as a p.r.n. for insomnia. Please note that the patient is on 2 separate antipsychotic therapies, lurasidone and Thorazine. Thi s is due to a plan to taper to monotherapy, which is still in progress at the time of discharge. Part B. Diet is regular. Part C. Activities as tolerated. The patient is a nonsmoker. There are no laboratory or diagnostic studies pending at the time of discharge. Part D. Followup care: She has an appointment on the morning of discharge, which is 06/28/18 at 11: 30 a.m. with psychiatrist, Dr. Brandy Escobar. Part E. Substance abuse followup: We are similarly recommending substance abuse treatment through [facility]. The patient is agreeable with discontinuing controlled substance s. HOSPITAL COURSE: Part A. Reason for admission. 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 The patient was actually ad mitted to the medical service a week ago for what she described as a seizure. At that time, she was worked up with an MRI and an EEG, which were both within normal limits. This clinician consulted on the patient's case on 06/18/18 and felt that she met criteria for bipolar disorder. I did start a tr ial of lurasidone, which was added to her lamotrigine and we recommended that she follow up with the [facility]. The patient's account is that after her discharge on 06/19/18, she followed up 2 days later at [place] with psychiatrist, Dr. Escobar. At that time, her lamotrigi ne was kept at 400 mg daily, but her lurasidone was increased from 20 to 40 mg. Given the patient's recent misuse of lorazepam and Ambien, Dr. Escobar did not continue those medicines. Over the week end, the patient states that she struggled to sleep, had a great deal of anxiety as well as restlessn ess, inability to focus, inability to work at school, feelings of being unsafe. She states that she has OCD and that her OCD often takes the form of obsessive thoughts of hurting herself or perhaps oth er people and she did admit to thoughts about banging her head against a wall when she returned to [facility] emergency room on 06/24/18. At that time, it was decided to hospitalize her on a 9.39 involuntary basis to our behavioral science unit. Part B. Psychiatric treatment rendered. The patient was admitted to the [facility] where she was placed on q.15-minute checks for her own safety. We did continue lurasidone and lamo trigine as they are currently prescribed. For breakthrough anxiety, she was treated with 50 mg of hy droxyzine on a q.6h. basis. For difficulty sleeping, she was treated initially with 50 mg of Thorazi ne and then this was increased to 100 mg with good effect. It should be noted that she is now on 2 a ntipsychotic medications and it is up to her outpatient providers to see if this requires cross titra tion down to monotherapy. At any rate, the patient has done well here. She has been sleeping well, has experienced a complete resolution of thoughts of self-harm. She is agreeable to going this [facility] to her next appointment with Dr. Escobar. I should note that when I attempted to call [place], Dr. Escobar was out for the day, but I did speak with psychiatrist and [facility] medical scientific officer, Dr. Anton zamudio, who indicated that they were aware of her misuse of Ambien and Ativan and that they will be withholding these in the future. [id number]/[facility] #: [id number]
== END 2018-06-28 10:50 | disposition home or self-care (01) | DRG 897 ==
LOC: ED 15:31 → BSU 16:57
PROVIDERS: ADMIT Psychiatry & Neurology Psychiatry; ATTEND Psychiatry & Neurology Psychiatry
PROC: GZHZZZZ Group Psychotherapy (ICD-10-PCS; principal; 2018-06-24)
DX: F13.10 Sedative, hypnotic or anxiolytic abuse, uncomplicated (principal); F31.0 Bipolar disorder, current episode hypomanic; F41.9 Anxiety disorder, unspecified; G47.00 Insomnia, unspecified; F42.9 Obsessive-compulsive disorder, unspecified; F39 Unspecified mood [affective] disorder; Z82.49 Family history of ischemic heart disease and other diseases of the circulatory system; Z87.891 Personal history of nicotine dependence; Z72.89 Other problems related to lifestyle; Z81.8 Family history of other mental and behavioral disorders
CPT/HCPCS: 36415; 80061; 83036; 90686; 90853; 99222; 99231; 99238; 99283; A9270-GY